=== PATIENT | female | born 1995 | race Caucasian/White ===

== ENCOUNTER 2020-02-25 13:39 | Emergency (ER) | payer SELFPAY ==
[2020-02-25 14:01] VITALS: PULSE 112; RESP 14; TEMP 36.1; O2SAT 96; BMI 45.6
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
[2020-02-25 15:34] LABS: Basophils # 0.1 10^3/uL (0.0-0.1); Basophils % 0.4 %; Eosinophils % 0.3 %; Hematocrit 42.8 % (37.0-47.0); Hemoglobin 13.3 g/dL (11.5-15.3); Mean Corpuscular HGB Conc 31.1 g/dL (30.0-36.0); Mean Corpuscular Hemoglobin 26.4 pg (28.0-34.0); Mean Corpuscular Volume 85.1 fL (81-99); Mean Platelet Volume 10.5 fL (7.4-10.4); Monocytes # 0.7 10^3/uL (0.2-0.9); Monocytes % 5.5 %; Neutrophils # 10.3 10^3/uL (1.8-7.7); Neutrophils % 77.3 %; Nucleated Red Blood Cells % 0 %; Platelet Count 323 10^3/cmm (130-400); Red Blood Count 5.03 10^6/uL (4.1-5.3); Red Cell Distribution Width 15.7 % (12.1-15.1); White Blood Count 13.3 10^3/uL (4.0-10.0)
[2020-02-25 15:49] LABS: HCG, Serum Qual Negative (Negative)
[2020-02-25] MEDS: ondansetron 2 mg/ML SDV 2 mL 4 MG IVP (15:49)
[2020-02-25 15:50] VITALS: RESP 18; O2SAT 98
[2020-02-25 15:50] LABS: Alanine Aminotransferase 42 U/L (0-33); Albumin Level 4.2 g/dL (3.5-5.2); Alkaline Phosphatase 67 IU/L (35-105); Anion Gap 17.2 (5-19); Aspartate Amino Transferase 36 U/L (0-32); Blood Urea Nitrogen 11 mg/dL (6-20); Calcium 9.3 mg/dL (8.5-10.5); Carbon Dioxide 26 mmol/L (22-29); Chloride 102 mmol/L (98-107); Glomerular Filtration Rate 121.8 mL/min (90-130); Glucose 96 mg/dL (65-115); Lactate (Lactic Acid level) 1.9 mmol/L (0.5-2.2); Osmolality Calculated 288 mOsm/kg (285-295); Potassium 4.2 mmol/L (3.5-5.1); Sodium 141 mmol/L (136-145); Total Bilirubin 0.3 mg/dL (0.15-1.2); Total Protein 7.2 g/dL (6.6-8.7)
[2020-02-25] MEDS: morphine 4 mg/mL SDV 1 mL IVP (15:50)
[2020-02-25] MEDS: sodium chloride 0.9% 1,000 ML 999 ML IV (16:00)
[2020-02-25] MEDS: iohexol 300 mg/mL 100 mL Btl IV (16:05)
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
[2020-02-25] MEDS: acetaminophen 500 mg Tablet 1000 MG PO (18:17)
[2020-02-25] MEDS: ketorolac 30 mg/mL INJ 15 MG IVP (18:17)
[2020-02-25 18:39] VITALS: RESP 18; O2SAT 98
[2020-02-25 18:46] VITALS: BP 160/88; PULSE 21; RESP 96; O2SAT 95
[2020-02-25 19:11] LABS: Add Urine Microscopic? YES; Bilirubin Urine Neg (NEGATIVE); Blood Urine Neg (Negative); Glucose Urine UA Norm (Normal); Ketones Urine Negative (Negative); Leukocyte Esterase Urine Negative (Negative); Nitrate Urine Negative (Negative); Protein Urine Trace (Negative); Urine Appearance Hazy (CLEAR); Urine Color Yellow (Yellow); Urobilinogen Urine Norm (Negative); pH Urine 5 (5-7)
[2020-02-25 19:13] LABS: Add Urine Culture? No; Bacteria Urine TRACE; Calcium Oxalate Crystals Urine 40-55 /hpf; Mucus Urine TRACE; RBC Urine 0-4 /hpf (0-2)
== END 2020-02-25 18:48 | disposition home or self-care (01) ==
PROVIDERS: Emergency Provider Emergency Medicine; PCP Family Medicine
DX: S29.012A Strain of muscle and tendon of back wall of thorax, initial encounter (principal); S13.4XXA Sprain of ligaments of cervical spine, initial encounter; S80.12XA Contusion of left lower leg, initial encounter; V49.9XXA Car occupant (driver) (passenger) injured in unspecified traffic accident, initial encounter
CPT/HCPCS: 12345; 36415; 70450; 71260; 72125; 73552; 74177; 80053; 81001; 83605; 84703; 85025; 86850; 86900; 96361; 96374; 96375; 99282; 99283; J1885; J2270; J2405; J7030; Q9967

== ENCOUNTER → 2020-05-06 14:31 | Outpatient (BNVA) | payer BC, SELFPAY | PROVIDERS: PCP Family Medicine; Visit Provider Nurse Practitioner Family | DX: J02.9 Acute pharyngitis, unspecified (principal); J03.90 Acute tonsillitis, unspecified | CPT/HCPCS: 87071; 87880 ==

== ENCOUNTER 2020-09-03 13:52 | Emergency (ER) | payer BC, SELFPAY ==
[2020-09-03 13:57] VITALS: BP 162/107; PULSE 95; RESP 16; TEMP 36; O2SAT 98; BMI 44.1
--- NOTE | 2020-09-03 13:59 | XRR_ITS ---
PROCEDURE INFORMATION: Exam: XR Right Hand Exam date and time: 09/03/2020 2:02 PM Age: 25 years old Clinical indication: Injury or trauma; Fall; Blunt trauma (contusions or hematomas); Hand; Bilateral; Injury date: Today; Additional info: Fall hand pain TECHNIQUE: Imaging protocol: XR Right hand. Views: 3 or more views. COMPARISON: No relevant prior studies available. FINDINGS: Bones/joints: There is a comminuted transverse hairline fracture of the distal metaphysis of the radius. An avulsion fracture is seen in the tip of the ulnar styloid. Soft tissues: Soft tissue edema is seen in the ventral wrist XR/XR hand RT min 3V* [id number] IMPRESSION: 1. Comminuted transverse hairline fracture distal metaphysis of the radius. 2. Avulsion fracture tip of the ulnar styloid 3. Soft tissue edema ventral wrist 4. Otherwise negative examination
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
[2020-09-03] MEDS: HYDROcodone-acetaminophen 5-325 mg Tablet 1 TAB PO (14:15)
[2020-09-03 14:16] VITALS: BP 162/107; PULSE 95; RESP 16; O2SAT 97
[2020-09-03 15:06] VITALS: PULSE 92; RESP 16; O2SAT 97
--- NOTE | 2020-09-07 11:15 | DCPLANNER ---
manager ship had message to schedule a follow up appointment for patient with ortho. manager ship called the ortho clinic, spoke with Natasha, gave clinic patients information. manager ship was told that patients information would be printed and reviewed. Clinic will call patient with appointment information.
--- NOTE | 2020-09-09 10:04 | DCPLANNER ---
Patient has a follow up appointment scheduled for , September 10, 2020 at 3:[address] Barajas. Clinic will call patient with appointment information.
--- NOTE | 2020-10-09 12:50 | DCPLANNER ---
Patient had a follow up appointment scheduled for 09.10.20 with ortho - patient did attend appointment.
== END 2020-09-03 15:08 | disposition home or self-care (01) ==
PROVIDERS: Emergency Provider Nurse Practitioner Family; PCP Family Medicine
DX: S52.124A Nondisplaced fracture of head of right radius, initial encounter for closed fracture (principal); S52.611A Displaced fracture of right ulna styloid process, initial encounter for closed fracture; W18.09XA Striking against other object with subsequent fall, initial encounter
CPT/HCPCS: 12345; 29125; 73090; 73130; 99281; 99283

== ENCOUNTER → 2020-09-10 15:42 | Outpatient (BNVA) | payer BC, SELFPAY | PROVIDERS: PCP Family Medicine; Visit Provider Orthopaedic Surgery | DX: S52.501A Unspecified fracture of the lower end of right radius, initial encounter for closed fracture (principal); S52.614A Nondisplaced fracture of right ulna styloid process, initial encounter for closed fracture; X58.XXXA Exposure to other specified factors, initial encounter | CPT/HCPCS: 73110 ==

== ENCOUNTER 2020-09-10 16:12 | Outpatient (CLI) | payer BC, SELFPAY | END 2020-09-10 16:13 | disposition home or self-care (01) | LOC: SPT 16:14 | PROVIDERS: PCP Family Medicine; Visit Provider Orthopaedic Surgery | DX: Z46.89 Encounter for fitting and adjustment of other specified devices (principal); S52.591D Other fractures of lower end of right radius, subsequent encounter for closed fracture with routine healing; X58.XXXD Exposure to other specified factors, subsequent encounter | CPT/HCPCS: 97760; L3982 ==

== ENCOUNTER → 2020-10-01 08:04 | Outpatient (BNVA) | payer BC, SELFPAY | PROVIDERS: PCP Family Medicine; Visit Provider Orthopaedic Surgery | DX: S59.201D Unspecified physeal fracture of lower end of radius, right arm, subsequent encounter for fracture with routine healing (principal); S52.611D Displaced fracture of right ulna styloid process, subsequent encounter for closed fracture with routine healing; X58.XXXD Exposure to other specified factors, subsequent encounter | CPT/HCPCS: 73110 ==

== ENCOUNTER → 2020-10-29 08:40 | Outpatient (BNVA) | payer BC, OTHER, SELFPAY | PROVIDERS: PCP Family Medicine; Visit Provider Orthopaedic Surgery | DX: S52.124D Nondisplaced fracture of head of right radius, subsequent encounter for closed fracture with routine healing (principal); X58.XXXD Exposure to other specified factors, subsequent encounter | CPT/HCPCS: 73110 ==

== ENCOUNTER 2020-11-05 07:34 | Outpatient (RCR) | payer OTHER, SELFPAY | END 2020-11-08 23:59 | disposition home or self-care (01) | LOC: SOT 07:34 | PROVIDERS: PCP Family Medicine; Referring Provider Orthopaedic Surgery; Visit Provider Orthopaedic Surgery | DX: S52.501D Unspecified fracture of the lower end of right radius, subsequent encounter for closed fracture with routine healing (principal) | CPT/HCPCS: 97110; 97165 ==

== ENCOUNTER 2020-11-09 06:00 | Outpatient (RCR) | payer OTHER, SELFPAY | END 2020-12-06 23:59 | disposition home or self-care (01) | LOC: SOT 06:00 | PROVIDERS: PCP Family Medicine; Referring Provider Orthopaedic Surgery; Visit Provider Orthopaedic Surgery | DX: S52.501D Unspecified fracture of the lower end of right radius, subsequent encounter for closed fracture with routine healing (principal) | CPT/HCPCS: 97022; 97110; 97530 ==

== ENCOUNTER 2020-12-17 13:22 | Inpatient (IN) | payer OTHER, SELFPAY ==
[2020-12-17] VITALS (15 sets, daily range): BP systolic 102–131; BP diastolic 51–84; PULSE 88–116; RESP 12–22; TEMP 36.2–36.7; O2SAT 92–100; BMI 42.3
--- NOTE | 2020-12-17 13:44 | ED_ITS ---
Documented by User: VICTORINO Brown 12/17/20 15:49 HPI - Skin/Abscess/Foreign Bdy General: Chief complaint: Skin/Abscess/Foreign Body Stated complaint: ABSCESS ON BUTTOCKS Time Seen by Provider: 12/17/20 13:33 Source: patient Mode of arrival: ambulatory Limitations: no limitations History of Present Illness: HPI narrative: Patient is a very nice 25-year-old female who presents to ED today with a complaint of a possible abscess near her rectum. Patient tells me she began noticing some discomfort approximately 3 to 4 days ago. She states since that time she has noticed the area becoming more painful and enlarging in size. She is having discomfort with sitting, walking, and with bowel movements. She has not noticed any drainage. She tells me she feels febrile but has not taken her temperature. She states she generally feels ill. Patient is not a diabetic. She has no history of staph or MRSA. complaint: abscess/boil Onset (ago): day(s) Location: buttocks Severity: moderate Quality: constant Pain Consistency: constant Relieving factors: none Context: none Associated symptoms: Reports arthralgias and chills; Deny nausea or vomiting Treatments prior to arrival: none Review of Systems Const: Reports: fever(s) (subjective), chills and body aches; Denies: change in appetite, change in weight, fatigue or malaise Card: Denies: chest pain Resp: Denies: dyspnea GI: Reports: rectal swelling, rectal itching and other (painful bowel movements); Denies: abdominal pain, nausea, vomiting, diarrhea, change in stool character, hematochezia, melena or white/light colored stool : Denies: flank pain, difficulty voiding, dysuria, urinary frequency or urinary urgency Musc: Denies: neck pain, back pain, extremity pain, extremity swelling, joint pain or joint swelling Skin/Breast: Reports: other (abscess) Neuro: Denies: headache(s), numbness in extremities, weakness in extremities or sensory changes PFSH ED PFSH: Social History Smoking and tobacco status: never smoked Female Reproductive History: Date of last menstrual period: 12/14/20 Physical Exam Const: COMMON NORMALS: no acute distress, no limitations and alert GENERAL APPEARANCE: cooperative NUTRITIONAL APPEARANCE: obese ORIENTATION/CONSCIOUSNESS: Yes awake, Yes oriented to person, Yes oriented to place and Yes oriented to time Resp: COMMON NORMALS: normal respiratory effort and clear to auscultation bilaterally AUSCULTATION: clear to auscultation bilaterally Cardio: COMMON NORMALS: regular rhythm RATE: tachycardic RHYTHM: regular rhythm GI: COMMON NORMALS: Normal to inspection, nondistended, normoactive bowel sounds present, Soft to palpation, non-tender, No hepatosplenomegaly present and no masses AUSCULTATION: Yes normoactive bowel sounds PALPATION: Yes Soft to palpation and Yes No hepatosplenomegaly present OTHER: pt with large area (approx 9cm) of erythema, warmth, and induration to R anorectal region; does not seem to extend into perineum; no areas of fluctuance noted Neuro: SENSORIUM/ORIENTATION: Yes alert, Yes oriented to person, Yes oriented to place and Yes oriented to time Course Consultations: Consultation #1: Dr. Mao-recommends admit to obs under his service, plan for OR around 1700, orders for fluids, pain/nausea meds, and can continue the cipro/flagyl abx Vital Signs: Vital signs: Vital Signs Temperature 97.1 F L 12/17/20 23:29 Pulse Rate 89 12/17/20 23:29 Respiratory Rate 16 12/17/20 23:29 Blood Pressure 102/62 12/17/20 23:29 Pulse Oximetry 94 12/17/20 23:29 MDM - Skin/Abscess/Foreign Bdy MDM Narrative: Medical decision making narrative: Patient has a white count of 17.7. She is mildly tachycardic. Her lactate is normal. She has a very large perirectal/perineal abscess on CT imaging. I spoke to Dr. Mao who would like to take patient to the OR around 1700 this evening. Lab Data: Labs: Lab Results 12/17/20 12/17/20 12/17/20 Range/Units 14:10 14:10 14:10 WBC 17.7 H (4.0-10.0) 10^3/ uL RBC 4.10 (4.1-5.3) 10^6/u L Hgb 11.2 L (11.5-15.3) g/dL Hct 35.1 L (37.0-47.0) % MCV 85.6 (81-99) fL MCH 27.3 L (28.0-34.0) pg MCHC 31.9 (30.0-36.0) g/dL RDW 14.6 (12.1-15.1) % Plt Count 340 (130-400) 10^3/c mm MPV 10.2 (7.4-10.4) fL Neut % (Auto) 83.4 % Lymph % (Auto) 9.0 % [place] % (Auto) 6.1 % Eos % (Auto) 0.3 % Baso % (Auto) 0.4 % Neut # (Auto) 14.71 H (1.8-7.7) 10^3/u L Lymph # (Auto) 1.6 (0.8-4.8) 10^3/u L [place] # (Auto) 1.1 H (0.2-0.9) 10^3/u L Eos # (Auto) 0.1 (0.0-0.8) 10^3/u L Baso # (Auto) 0.1 (0.0-0.1) 10^3/u L Nucleated RBC % (a uto) 0 % Nucleated RBCs # 0.0 /100WBC Sodium 134 L (136-145) mmol/L Potassium 3.8 (3.5-5.1) mmol/L Chloride 98 (98-107) mmol/L Carbon Dioxide 25 (22-29) mmol/L Anion Gap 14.8 (5-19) BUN 8 (6-20) mg/dL Creatinine 0.8 (0.5-0.9) mg/dL GFR Calculation 86.7 L (90-130) mL/min Glucose 89 (65-115) mg/dL Calculated Osmolal ity 276 L (285-295) mOsm/k g Lactic Acid 1.1 (0.5-2.2) mmol/L Calcium 9.1 (8.5-10.5) mg/dL Total Bilirubin 0.9 (0.15-1.2) mg/dL AST 15 (0-32) U/L ALT 17 (0-33) U/L Alkaline Phosphata se 85 (35-105) IU/L C-Reactive Protein 137.6 H (0.0-4.9) mg/L Total Protein 7.7 (6.6-8.7) g/dL Albumin 3.7 (3.5-5.2) g/dL Globulin 4.0 (1.3-4.6) g/dL HCG, Qual (Negative) 12/17/20 Range/Units 14:10 WBC (4.0-10.0) 10^3/ uL RBC (4.1-5.3) 10^6/u L Hgb (11.5-15.3) g/dL Hct (37.0-47.0) % MCV (81-99) fL MCH (28.0-34.0) pg MCHC (30.0-36.0) g/dL RDW (12.1-15.1) % Plt Count (130-400) 10^3/c mm MPV (7.4-10.4) fL Neut % (Auto) % Lymph % (Auto) % [place] % (Auto) % Eos % (Auto) % Baso % (Auto) % Neut # (Auto) (1.8-7.7) 10^3/u L Lymph # (Auto) (0.8-4.8) 10^3/u L [place] # (Auto) (0.2-0.9) 10^3/u L Eos # (Auto) (0.0-0.8) 10^3/u L Baso # (Auto) (0.0-0.1) 10^3/u L Nucleated RBC % (a uto) % Nucleated RBCs # /100WBC Sodium (136-145) mmol/L Potassium (3.5-5.1) mmol/L Chloride (98-107) mmol/L Carbon Dioxide (22-29) mmol/L Anion Gap (5-19) BUN (6-20) mg/dL Creatinine (0.5-0.9) mg/dL GFR Calculation (90-130) mL/min Glucose (65-115) mg/dL Calculated Osmolal ity (285-295) mOsm/k g Lactic Acid (0.5-2.2) mmol/L Calcium (8.5-10.5) mg/dL Total Bilirubin (0.15-1.2) mg/dL AST (0-32) U/L ALT (0-33) U/L Alkaline Phosphata se (35-105) IU/L C-Reactive Protein (0.0-4.9) mg/L Total Protein (6.6-8.7) g/dL Albumin (3.5-5.2) g/dL Globulin (1.3-4.6) g/dL HCG, Qual Negative (Negative) Imaging Data^: CT Abd/Pel: Radiologist's impression: [address] [address] [address] Scan Report Signed Patient: [place] Unit #: [id number] : 1995 Age/Sex: 25 / F ADM Date: 12/17/20 Loc: ER Room/Bed: Attending Dr: Ordering Provider/Ordering MD: Tatiana Lord Date of Service: 12/17/20 Procedure(s): CT pelvis w con* [id number] Accession Number(s): [id number] Report Number: [id number] WS: [id number] CT pelvis TECHNIQUE: Contrast-enhanced CT of the pelvis with coronal and sagittal reformatted images. CLINICAL INFORMATION: R buttock/perirectal abscess COMPARISON: CT February 25, 2020 DLP: 1551.[address] scans at [facility] use at least one of these dose optimization techniques: automated exposure control; mA and/or kV adjustment per patient size (includes targeted exams where dose is matched to clinical indication); or iterative reconstruction. FINDINGS: Right perirectal and perineal abscess with air-fluid level measuring approximately 4.8 x 5.1 x 7.2 cm AP by transverse by craniocaudal. Soft tissue edema with induration in the perirectal soft tissues. Normal sigmoid colon. A few reactive right inguinal lymph nodes. No other significant findings. CT/CT pelvis w con* [id number] IMPRESSION: 1. Right perirectal and perineal abscess measuring 4.8 x 5.1 x 7.2 cm with air- fluid level. 2. Associated surrounding induration and inflammatory stranding in the perirectal and perineal soft tissues. 3. A few reactive right inguinal lymph nodes. Dictated By: Calvin Bradshaw MD Signed By: Calvin Bradshaw MD Signed Date/Time: 12/17/20 1522 DD/ Discharge Plan Discharge Patient Disposition: Placed in Observation Admit Provider: Jens Mao Clinical Impression: Abscess, perirectal Coding Level of Care Code ED Cadd Drafter for Chg Fwd Exam Expanded Problem Focused Documented by User: Yessica Mcdonough MD 12/18/20 01:52 HPI - Skin/Abscess/Foreign Bdy General: Chief complaint: Skin/Abscess/Foreign Body Stated complaint: ABSCESS ON BUTTOCKS Time Seen by Provider: 12/17/20 13:33 PFSH ED PFSH: Social History Smoking and tobacco status: never smoked Course Vital Signs: Vital signs: Vital Signs Temperature 97.1 F L 12/17/20 23:29 Pulse Rate 89 12/17/20 23:29 Respiratory Rate 16 12/17/20 23:29 Blood Pressure 102/62 12/17/20 23:29 Pulse Oximetry 94 12/17/20 23:29 MDM - Skin/Abscess/Foreign Bdy Lab Data: Labs: Lab Results 12/17/20 12/17/20 12/17/20 Range/Units 14:10 14:10 14:10 WBC 17.7 H (4.0-10.0) 10^3/ uL RBC 4.10 (4.1-5.3) 10^6/u L Hgb 11.2 L (11.5-15.3) g/dL Hct 35.1 L (37.0-47.0) % MCV 85.6 (81-99) fL MCH 27.3 L (28.0-34.0) pg MCHC 31.9 (30.0-36.0) g/dL RDW 14.6 (12.1-15.1) % Plt Count 340 (130-400) 10^3/c mm MPV 10.2 (7.4-10.4) fL Neut % (Auto) 83.4 % Lymph % (Auto) 9.0 % [place] % (Auto) 6.1 % Eos % (Auto) 0.3 % Baso % (Auto) 0.4 % Neut # (Auto) 14.71 H (1.8-7.7) 10^3/u L Lymph # (Auto) 1.6 (0.8-4.8) 10^3/u L [place] # (Auto) 1.1 H (0.2-0.9) 10^3/u L Eos # (Auto) 0.1 (0.0-0.8) 10^3/u L Baso # (Auto) 0.1 (0.0-0.1) 10^3/u L Nucleated RBC % (a uto) 0 % Nucleated RBCs # 0.0 /100WBC Sodium 134 L (136-145) mmol/L Potassium 3.8 (3.5-5.1) mmol/L Chloride 98 (98-107) mmol/L Carbon Dioxide 25 (22-29) mmol/L Anion Gap 14.8 (5-19) BUN 8 (6-20) mg/dL Creatinine 0.8 (0.5-0.9) mg/dL GFR Calculation 86.7 L (90-130) mL/min Glucose 89 (65-115) mg/dL Calculated Osmolal ity 276 L (285-295) mOsm/k g Lactic Acid 1.1 (0.5-2.2) mmol/L Calcium 9.1 (8.5-10.5) mg/dL Total Bilirubin 0.9 (0.15-1.2) mg/dL AST 15 (0-32) U/L ALT 17 (0-33) U/L Alkaline Phosphata se 85 (35-105) IU/L C-Reactive Protein 137.6 H (0.0-4.9) mg/L Total Protein 7.7 (6.6-8.7) g/dL Albumin 3.7 (3.5-5.2) g/dL Globulin 4.0 (1.3-4.6) g/dL HCG, Qual (Negative) 12/17/20 Range/Units 14:10 WBC (4.0-10.0) 10^3/ uL RBC (4.1-5.3) 10^6/u L Hgb (11.5-15.3) g/dL Hct (37.0-47.0) % MCV (81-99) fL MCH (28.0-34.0) pg MCHC (30.0-36.0) g/dL RDW (12.1-15.1) % Plt Count (130-400) 10^3/c mm MPV (7.4-10.4) fL Neut % (Auto) % Lymph % (Auto) % [place] % (Auto) % Eos % (Auto) % Baso % (Auto) % Neut # (Auto) (1.8-7.7) 10^3/u L Lymph # (Auto) (0.8-4.8) 10^3/u L [place] # (Auto) (0.2-0.9) 10^3/u L Eos # (Auto) (0.0-0.8) 10^3/u L Baso # (Auto) (0.0-0.1) 10^3/u L Nucleated RBC % (a uto) % Nucleated RBCs # /100WBC Sodium (136-145) mmol/L Potassium (3.5-5.1) mmol/L Chloride (98-107) mmol/L Carbon Dioxide (22-29) mmol/L Anion Gap (5-19) BUN (6-20) mg/dL Creatinine (0.5-0.9) mg/dL GFR Calculation (90-130) mL/min Glucose (65-115) mg/dL Calculated Osmolal ity (285-295) mOsm/k g Lactic Acid (0.5-2.2) mmol/L Calcium (8.5-10.5) mg/dL Total Bilirubin (0.15-1.2) mg/dL AST (0-32) U/L ALT (0-33) U/L Alkaline Phosphata se (35-105) IU/L C-Reactive Protein (0.0-4.9) mg/L Total Protein (6.6-8.7) g/dL Albumin (3.5-5.2) g/dL Globulin (1.3-4.6) g/dL HCG, Qual Negative (Negative) Discharge Plan Discharge Patient Disposition: Placed in Observation Admit Provider: Giurgius,Jens Clinical Impression: Abscess, perirectal Coding Level of Care Code ED Cadd Drafter for Chg Fwd Exam Expanded Problem Focused
--- NOTE | 2020-12-17 13:53 | CT_ITS ---
WS: [id number] CT pelvis TECHNIQUE: Contrast-enhanced CT of the pelvis with coronal and sagittal reformatted images. CLINICAL INFORMATION: R buttock/perirectal abscess COMPARISON: CT February 25, 2020 DLP: 1551.[address] scans at [facility] use at least one of these dose optimization techniques: automat ed exposure control; mA and/or kV adjustment per patient size (includes targeted exams where dose is matched to clinical indication); or iterative reconstruction. FINDINGS: Right perirectal and perineal abscess with air-fluid level measuring approximately 4.8 x 5.1 x 7.2 cm AP by transverse by craniocaudal. Soft tissue edema with induration in the perirectal soft tissues. Normal sigmoid colon. A few reactive right inguinal lymph nodes. No other significant findings. CT/CT pelvis w con* [id number] IMPRESSION: 1. Right perirectal and perineal abscess measuring 4.8 x 5.1 x 7.2 cm with air -fluid level. 2. Associated surrounding induration and inflammatory stranding in the perirec verenice and perineal soft tissues. 3. A few reactive right inguinal lymph nodes.
[2020-12-17] MEDS: ciprofloxacin 400 MG/200 ML PREMIX 200 MG IV (14:17)
[2020-12-17 14:21] LABS: Basophils # 0.1 10^3/uL (0.0-0.1); Basophils % 0.4 %; Eosinophils # 0.1 10^3/uL (0.0-0.8); Eosinophils % 0.3 %; Hematocrit 35.1 % (37.0-47.0); Hemoglobin 11.2 g/dL (11.5-15.3); Lymphocytes # 1.6 10^3/uL (0.8-4.8); Mean Corpuscular HGB Conc 31.9 g/dL (30.0-36.0); Mean Corpuscular Hemoglobin 27.3 pg (28.0-34.0); Mean Corpuscular Volume 85.6 fL (81-99); Mean Platelet Volume 10.2 fL (7.4-10.4); Monocytes # 1.1 10^3/uL (0.2-0.9); Monocytes % 6.1 %; Neutrophils # 14.71 10^3/uL (1.8-7.7); Neutrophils % 83.4 %; Nucleated Red Blood Cells % 0 %; Platelet Count 340 10^3/cmm (130-400); Red Cell Distribution Width 14.6 % (12.1-15.1); White Blood Count 17.7 10^3/uL (4.0-10.0)
[2020-12-17 14:43] LABS: Alanine Aminotransferase 17 U/L (0-33); Albumin Level 3.7 g/dL (3.5-5.2); Alkaline Phosphatase 85 IU/L (35-105); Anion Gap 14.8 (5-19); Aspartate Amino Transferase 15 U/L (0-32); Blood Urea Nitrogen 8 mg/dL (6-20); C Reactive Protein 137.6 mg/L (0.0-4.9); Calcium 9.1 mg/dL (8.5-10.5); Carbon Dioxide 25 mmol/L (22-29); Chloride 98 mmol/L (98-107); Creatinine Clr Calc Pharmacy 149.3532; Glomerular Filtration Rate 86.7 mL/min (90-130); Glucose 89 mg/dL (65-115); Osmolality Calculated 276 mOsm/kg (285-295); Potassium 3.8 mmol/L (3.5-5.1); Sodium 134 mmol/L (136-145); Total Bilirubin 0.9 mg/dL (0.15-1.2); Total Protein 7.7 g/dL (6.6-8.7)
[2020-12-17 14:44] LABS: Lactic Sepsis W/Reflex 1.1 mmol/L (0.5-2.2)
[2020-12-17] MEDS: sodium chloride 0.9% 1,000 ML 999 ML IV (14:47)
[2020-12-17 14:51] LABS: HCG, Serum Qual Negative (Negative)
[2020-12-17] MEDS: iohexol 300 mg/mL 100 mL Btl IV (15:01)
[2020-12-17] MEDS: morphine 4 mg/mL SDV 1 mL IVP (15:25)
[2020-12-17] MEDS: ondansetron 2 mg/ML SDV 2 mL 4 MG IVP (15:28)
[2020-12-17] MEDS: metroNIDAZOLE IV 500 MG/100 ML PREMIX 100 MG IV ×2 (15:42→20:20)
--- NOTE | 2020-12-17 15:49 | P.HP_ITS ---
Providers/Chief Complaint Primary Care Provider: Dayanara Grossman MD Chief Complaint: ABSCESS ON BUTTOCKS History of Present Illness Mrs. Little Grier is a pleasant 25 year old female with history of morbid obesity with a BMI 42.3 and weighs 278 pounds otherwise healthy young lady.. Patient over the past couple of days started to feel lethargic and tired no nausea or vomiting but she did recall some fever and mild chills. Patient was feeling uncomfortable standing or sitting down and she felt some fullness around the perianal area and came to the emergency department for further work-up and blood work showed WBC count of 17.[address] scan of the pelvis was ordered that showed: Right perirectal and perineal abscess with air-fluid level measuring approximately 4.8 x 5.1 x 7.2 cm AP by transverse by craniocaudal. Soft tissue edema with induration in the perirectal soft tissues. Normal sigmoid colon. A few reactive right inguinal lymph nodes. No other significant findings. CT/CT pelvis w con* [id number] IMPRESSION: 1. Right perirectal and perineal abscess measuring 4.8 x 5.1 x 7.2 cm with air- fluid level. 2. Associated surrounding induration and inflammatory stranding in the perirectal and perineal soft tissues. 3. A few reactive right inguinal lymph nodes. General surgery was consulted for further evaluation potential intervention Review of Systems General: Reports: 10 or more systems reviewed and unremarkable except in HPI and below Medications/Allergies Home Medications Medication Instructions Recorded Confirmed Last Taken Type aripiprazole 5 mg PO BEDTIME 02/25/20 12/17/20 02/24/20 History buspirone 10 mg PO TID PRN 02/25/20 12/17/20 02/24/20 History duloxetine 60 mg PO DAILY 02/25/20 12/17/20 02/24/20 History levothyroxine 125 mcg PO DAILY 02/25/20 12/17/20 02/24/20 History acetaminophen 500 mg PO Q6H PRN 12/17/20 12/17/20 12/17/20 History Allergies Allergy/AdvReac Type Severity Reaction Status Date / Time No Known Allergies Allergy Verified 12/17/20 16:38 PFSH Acute PFSH: Social History Smoking and tobacco status: never smoked Female Reproductive History: Date of last menstrual period: 12/14/20 Vitals/I&O/Wt Last Vital Signs Temp 97.9 F 12/17/20 13:30 Pulse 106 H 12/17/20 14:27 Resp 20 H 12/17/20 15:25 BP 111/70 12/17/20 14:27 Pulse Ox 100 12/17/20 14:27 Weight last 48 hrs Weight 278 lb Physical Exam Narrative: EXAM NARRATIVE: Patient is conscious alert oriented X3 BMI 42.3 Head and neck examination PERRLA no masses no cervical lymphadenopathy no jaundice Cardiac examination audible S1-S2 no murmurs no gallops no arrhythmias Chest is clear bilateral,abscence of Rhonchi or wheezes,no surgical emphysema Abdomen nontender nondistended soft no organomegaly guarding or rigidity/no signs of peritonitis Morbidly obese Physical examination was done in the presence of female retort condenser attendant nursing staff Bárbara Right perianal induration measures about 20 x 15 cm with maximal tenderness in the center consistent with right perianal abscess. Extremities no cyanosis no clubbing no edema Data : 12/17/20 14:10 12/17/20 14:10 Micro: Microbiology 12/17/20 14:28 Blood Culture - Preliminary Blood SPECIMEN COLLECTED 12/17/20 14:39 Blood Culture - Preliminary Blood SPECIMEN COLLECTED A&P Assessment and plan (1) Abscess, perirectal: After thorough history taking physical examination and reviewing the chart and images of the CT scan of the pelvis with my personal interpretation. I did international student counselor the patient and her mom for examination under anesthesia with incision and drainage of right perianal abscess. Indications, risks, benefits alternatives all discussed with the patient, understanding the potential risk of partial or complete incontinence with this procedure, also patient understands the potential longevity of wound care. Patient agreed to proceed and informed consent per chart We will plan to observe the patient overnight for pain control and continue antimicrobial therapy postoperatively. Status: Acute Attestations Medical Necessity Statement*: Observation status for pain control and antimicrobial therapy as part of perioperative care Time Spent in Patient Care: (>than 50% of time spent in counselling and/or direct pt care on unit) . Coding Level of Care Code Acute Utilization Engineer for Allison Meeks Diagnoses Abscess, perirectal K61.1
--- NOTE | 2020-12-17 16:40 | ANES.PREANE2 ---
Pre-Anesthetic Assessment Pre-Anesthetic Assessment: Height/Weight: Height 1.73 m Weight 126.099 kg Temp Pulse Resp BP Pulse Ox 97.9 F 94 18 112/84 98 12/17/20 16:39 12/17/20 16:39 12/17/20 16:39 12/17/20 16:39 12/17/20 16:39 Preop Diagnosis: Right perianal abscess Proposed Procedure: Operation Date: 12/17/20 15:55 Proposed Procedures p Perianal Abscess Incision And Drainage(Not Applicable) - Jens Mao MD Was Beta Bibiana taken within 24 hours: N/A Social: Social History: No alcohol and No tobacco Exam: Pre-Anes Outpt Exam: alert, oriented x 3, clear to auscultation bilaterally and regular rate & rhythm Airway: Submandibular: WNL Cervical ROM: WNL MP: 2 Dentition: Chipped History/ROS: No significant complaints Pulmonary: Pulmonary: None reported CV/HEM: CV/HEM: None reported : : None reported Hepatic: Hepatic: None reported GI: GI: GERD Metabolic: Metabolic: Morbid obesity and Thyroid Musc/skel: Musc/skel: None reported Neuropsych: Neuropsych: Depression Anesthetic Plan: ASA status: 2E Anesthesia: General PFSH Anesthesia PFSH: Social History Smoking and tobacco status: never smoked Female Reproductive History: Date of last menstrual period: 12/14/20 Data Anesthesia CBC & Chem 7: 12/17/20 14:10 12/17/20 14:10 Other Labs: Laboratory Results - last 48 hr 12/17/20 12/17/20 12/17/20 14:10 14:10 14:10 WBC 17.7 H RBC 4.10 Hgb 11.2 L Hct 35.1 L MCV 85.6 MCH 27.3 L MCHC 31.9 RDW 14.6 Plt Count 340 MPV 10.2 Neut % (Auto) 83.4 Lymph % (Auto) 9.0 Greenlee % (Auto) 6.1 Eos % (Auto) 0.3 Baso % (Auto) 0.4 Neut # (Auto) 14.71 H Lymph # (Auto) 1.6 Greenlee # (Auto) 1.1 H Eos # (Auto) 0.1 Baso # (Auto) 0.1 Nucleated RBC % (auto) 0 Nucleated RBCs # 0.0 Sodium 134 L Potassium 3.8 Chloride 98 Carbon Dioxide 25 Anion Gap 14.8 BUN 8 Creatinine 0.8 GFR Calculation 86.7 L Glucose 89 Calculated Osmolality 276 L Lactic Acid 1.1 Calcium 9.1 Total Bilirubin 0.9 AST 15 ALT 17 Alkaline Phosphatase 85 C-Reactive Protein 137.6 H Total Protein 7.7 Albumin 3.7 Globulin 4.0 HCG, Qual 12/17/20 14:10 WBC RBC Hgb Hct MCV MCH MCHC RDW Plt Count MPV Neut % (Auto) Lymph % (Auto) Greenlee % (Auto) Eos % (Auto) Baso % (Auto) Neut # (Auto) Lymph # (Auto) Greenlee # (Auto) Eos # (Auto) Baso # (Auto) Nucleated RBC % (auto) Nucleated RBCs # Sodium Potassium Chloride Carbon Dioxide Anion Gap BUN Creatinine GFR Calculation Glucose Calculated Osmolality Lactic Acid Calcium Total Bilirubin AST ALT Alkaline Phosphatase C-Reactive Protein Total Protein Albumin Globulin HCG, Qual Negative Micro: Microbiology 12/17/20 14:28 Blood Culture - Preliminary Blood SPECIMEN COLLECTED 12/17/20 14:39 Blood Culture - Preliminary Blood SPECIMEN COLLECTED Cardiac Studies: No Data to Display
[2020-12-17] MEDS: lidocaine 2% INJ 20 mL INJECTION (17:25)
--- NOTE | 2020-12-17 17:35 | P.OP_ITS ---
Operative Report Date of procedure: December 17, 2020 Pre-op Diagnosis: Right perianal abscess Post-op diagnosis: same Post-op Findings: Large right perianal abscess with measurements 5 x 3.5 by [address] to the ischiorectal fossa pad of fat Procedure Done: Examination under anesthesia Incision and drainage of right perianal abscess with sharp debridement of the abscess cavity. Implants: Packing with 2 inches mini Kerlix and large piece of Surgicel Specimens removed/disposition: Swabs for cultures and sensitivities and tissues for cultures and sensitivities Surgeon: Jens Mao Commercial Credit Reviewer: interventional tech Haley Circulating nurse Coy Kelly Anesthesia: General (GETA PRODUCTION TEAM MEMBER Deshaun) Estimated blood loss (mL): 15 Complications: No immediate complications Condition: stable Disposition: observation Brief History: This is a pleasant 25 years old female patient with history of right perianal abscess. Full H&P and informed consent per chart. Procedure: Examination under anesthesia with incision and drainage of right perianal abscess Patient was identified in the holding area, was taken to the OR placed first in supine position,IV antibiotics were given with induction time-out was done verifying the patient's name, date of , and procedure, all were in agreement.Endotracheal tube was placed by the anesthesia provider, patient was placed in supine position and all pressure points were padded and patient was appropriately secured to the bed. Prep and drape of the perineum was done under the usual sterile technique Perianal examination showed right perianal induration,on digital rectal examination showed a right lateral fullness with no involvement of the anal canal.No perianal sinuses or fistulae. A lubricated self-retaining proctoscope was inserted, showed normal findings of the anal canal. At this point a stab incision was created towards the center of the most fluctuant area and a gush of pus was revealed swabs were obtained for cultures and sensitivities following that a cruciate incision was fashioned and all loculations were broken down by the examining finger. Tissues were obtained for cultures and sensitivities and following that Pulsavac using 3 L of warm saline was done then appropriate hemostasis was achieved using Bovie cauterization.Then packing using 2 inches mini Kerlix impregnated and lidocaine 2% followed by large piece of Surgicel. ABDs were applied followed by surgical pants Patient was repositioned to supine position,counts of instruments,needles and sponges were completed at the end of the procedure Patient was taken to the recovery area in stable condition after extubation. I was present for the whole entire procedure
--- NOTE | 2020-12-17 17:55 | P.PCN_ITS ---
PACU note PACU note: VSS, Good respiratory effort, report to RPG PROGRAMMER ANALYST Post-Anesthesia Exam: awake
--- NOTE | 2020-12-17 17:55 | PM.PACU ---
PACU note PACU note: VSS, Good respiratory effort, report to CARDIAC REHAB NURSE Post-Anesthesia Exam: awake
[2020-12-17] MEDS: docusate sodium 100 mg Capsule PO (20:20)
[2020-12-17] MEDS: HYDROcodone-acetaminophen 5-325 mg Tablet 1 TAB PO (20:20)
[2020-12-17] MEDS: sodium chloride 0.9% 1,000 ML 100 ML IV (20:20)
[2020-12-17] MEDS: famotidine 20 mg/2 mL INJ IVP (20:22)
[2020-12-18] VITALS (9 sets, daily range): BP systolic 95–153; BP diastolic 54–88; PULSE 65–87; RESP 15–18; TEMP 36.2–37.1; O2SAT 94–97
[2020-12-18] MEDS: ciprofloxacin 400 MG/200 ML PREMIX 200 MG IV (02:24)
[2020-12-18] MEDS: HYDROcodone-acetaminophen 5-325 mg Tablet 1 TAB PO ×3 (02:24→17:27)
[2020-12-18] MEDS: metroNIDAZOLE IV 500 MG/100 ML PREMIX 100 MG IV ×3 (05:26→23:06)
[2020-12-18 06:05] LABS: Basophils # 0.1 10^3/uL (0.0-0.1); Basophils % 0.3 %; Hematocrit 35.7 % (37.0-47.0); Hemoglobin 10.7 g/dL (11.5-15.3); Lymphocytes # 1.1 10^3/uL (0.8-4.8); Lymphocytes % 6.4 %; Mean Corpuscular Hemoglobin 26.8 pg (28.0-34.0); Mean Corpuscular Volume 89.5 fL (81-99); Mean Platelet Volume 10.5 fL (7.4-10.4); Monocytes # 0.5 10^3/uL (0.2-0.9); Monocytes % 2.9 %; Neutrophils # 15.29 10^3/uL (1.8-7.7); Neutrophils % 89.5 %; Nucleated Red Blood Cells % 0 %; Platelet Count 295 10^3/cmm (130-400); Red Blood Count 3.99 10^6/uL (4.1-5.3); Red Cell Distribution Width 14.8 % (12.1-15.1); White Blood Count 17.1 10^3/uL (4.0-10.0)
[2020-12-18 06:14] LABS: Anion Gap 13.3 (5-19); Blood Urea Nitrogen 8 mg/dL (6-20); Calcium 8.5 mg/dL (8.5-10.5); Carbon Dioxide 26 mmol/L (22-29); Chloride 102 mmol/L (98-107); Glomerular Filtration Rate 120.8 mL/min (90-130); Glucose 126 mg/dL (65-115); Osmolality Calculated 284 mOsm/kg (285-295); Potassium 4.3 mmol/L (3.5-5.1); Sodium 137 mmol/L (136-145)
[2020-12-18] MEDS: sodium chloride 0.9% 1,000 ML 100 ML IV ×2 (06:29→16:41)
[2020-12-18] MEDS: docusate sodium 100 mg Capsule PO ×2 (10:09→17:28)
[2020-12-18] MEDS: famotidine 20 mg/2 mL INJ IVP ×2 (10:09→23:05)
[2020-12-18] MEDS: morphine 4 mg/mL SDV 1 mL 2 MG IVP ×3 (12:01→19:55)
--- NOTE | 2020-12-18 14:16 | PC.CHAP ---
Pastoral Care Encounter/Spiritual Assessment Type of Contact [] Declined advertising strategist visit [] Patient/Family/Request visit [] Outpatient visit [] Follow-up visit [] Physician referral [] Code/Alert [xx] Routine visit [] Staff referral [] Actively dying [] Patient sleeping [] Family support [] [] Out of room [] Palliative care [] [] Receiving care in room [] Pre-surgical visit [] Trauma [] Long length of stay [] ICU visit [] Other: Relational/Emotional Strength xx] Patient feels connected with others/family/visitors/staff [] Distress [] Loneliness/isolation [] Abandonment Spirituality of Patient [xx] Person of Caitlyn [] Attends Yazdanism of their Caitlyn [xx] Believes in Prayer [xx] Reads Bible or Congregation materials [] There are Spiritual issues to be addressed Mill Labor Supervisor Interventions [xx] Prayer [xx] Active listening [xx] Non-anxious presence [] Spiritual/emotional support [] Crisis/trauma care [] Spiritual counseling [] Bereavement support [] Provided bereavement packet [xx] Provided Bible/devotional materials [] Provided toy/stuffed animal, coloring book to patient or family member [] Provided Communion [] Anointing/[place] [] Salvation [xx] Completed spiritual assessment [] Other: Impact on Illness or Injury [] Angry [] Fearful [] Anxious [] Often cries [] Exhaustion [] Unable to work [] Unable to attend spiritism [] Unable to walk/stand [] Unable to read [] Unable to drive [] Unable to eat/drink [] Unable to sleep [] Unable to be with family [] Patient intubated [] Other: Summary Paatient feeling much better after surgery. Patient worried more about her home situation and wanted prayer but would not elaborate. Time spent with patient 5 minutes
--- NOTE | 2020-12-18 17:41 | P.PN_ITS ---
Subjective Subjective: Interval history: Patient overall feels better yet sore Medications: Reviewed: Yes Vitals/I&O/Wt Last Vital Signs Temp 98.7 F 12/18/20 15:22 Pulse 78 12/18/20 15:22 Resp 17 12/18/20 15:22 BP 100/54 12/18/20 15:22 Pulse Ox 94 12/18/20 15:22 12/18/20 12/18/20 12/18/20 06:59 14:59 22:59 Intake Total 1300 / 2800 820 / 820 1000 / 1820 Output Total 550 / 1365 500 / 500 Balance 750 / 1435 320 / 320 1000 / 1320 Weight last 48 hrs Weight 278 lb Physical Exam Narrative: EXAM NARRATIVE: Patient is conscious alert oriented X3 BMI 42.3 Head and neck examination PERRLA no masses no cervical lymphadenopathy no jaundice Abdomen nontender nondistended soft no organomegaly guarding or rigidity/no signs of peritonitis Morbidly obese Physical examination of the right perianal area in the presence of female optician apprentice nursing staff Lissette Patient shows induration and less cellulitic changes around the site of the incision and drainage. Packing was removed by me bedside after premedication and showed no purulent discharge or bleeding as well as the piece of Surgicel that I did place yesterday in the OR. Repacking was done by me bedside and patient tolerated it. Data : 12/18/20 04:37 12/18/20 04:37 Micro: Microbiology 12/17/20 14:39 Blood Culture - Preliminary Blood NEGATIVE TO DATE 12/17/20 14:28 Blood Culture - Preliminary Blood NEGATIVE TO DATE A&P Assessment and plan (1) Abscess, perirectal: Patient is status post examination under anesthesia with incision and drainage of right perianal abscess 12/17/2020 : daily wet-to-dry dressing change using Kerlix followed by ABDs and surgical alfaro ts. Pain control Parenteral broad-spectrum antibiotics Encourage mobility Continue pharmacologic DVT prophylaxis Assurance and education All questions have been answered and all concerns have been addressed to patient's satisfaction. Status: Acute Attestations Medical Necessity Statement*: Continue hospitalization for parenteral antimicrobial therapy and wound care. Repeat blood work in the morning. Time Spent in Patient Care: 16 - 35 minutes (>than 50% of time spent in counselling and/or direct pt care on unit) . Coding Level of Care Code Acute Digital Photo Printer for Chg Fwd Diagnoses Abscess, perirectal K61.1
[2020-12-19] VITALS (14 sets, daily range): BP systolic 102–119; BP diastolic 65–80; PULSE 69–93; RESP 16–20; TEMP 36.5–37; O2SAT 92–99
[2020-12-19] MEDS: morphine 4 mg/mL SDV 1 mL 2 MG IVP ×7 (00:50→22:42)
[2020-12-19] MEDS: sodium chloride 0.9% 1,000 ML 100 ML IV ×2 (04:03→14:31)
[2020-12-19] MEDS: metroNIDAZOLE IV 500 MG/100 ML PREMIX 100 MG IV ×3 (06:36→22:44)
[2020-12-19 06:55] LABS: Basophils % 0.3 %; Eosinophils % 0.1 %; Hematocrit 32.1 % (37.0-47.0); Hemoglobin 9.8 g/dL (11.5-15.3); Lymphocytes # 2.6 10^3/uL (0.8-4.8); Lymphocytes % 17.3 %; Mean Corpuscular HGB Conc 30.5 g/dL (30.0-36.0); Mean Corpuscular Hemoglobin 26.8 pg (28.0-34.0); Mean Corpuscular Volume 87.9 fL (81-99); Mean Platelet Volume 10.7 fL (7.4-10.4); Monocytes # 0.6 10^3/uL (0.2-0.9); Monocytes % 3.9 %; Neutrophils # 11.59 10^3/uL (1.8-7.7); Neutrophils % 76.4 %; Nucleated Red Blood Cells % 0 %; Platelet Count 300 10^3/cmm (130-400); Red Blood Count 3.65 10^6/uL (4.1-5.3); Red Cell Distribution Width 14.9 % (12.1-15.1); White Blood Count 15.2 10^3/uL (4.0-10.0)
--- NOTE | 2020-12-19 07:41 | P.PN_ITS ---
Subjective Subjective: Interval history: Patient overall feels better, tolerating p.o. intake No acute events overnight WBC count trending down to 15.2 Medications: Reviewed: Yes Vitals/I&O/Wt Last Vital Signs Temp 98.6 F 12/19/20 07:08 Pulse 74 12/19/20 07:08 Resp 18 12/19/20 07:08 BP 115/80 12/19/20 07:08 Pulse Ox 95 12/19/20 07:08 12/18/20 12/19/20 12/19/20 22:59 06:59 14:59 Intake Total 1000 / 1820 1100 / 2920 Output Total 400 / 900 650 / 1550 Balance 600 / 920 450 / 1370 Weight last 48 hrs Weight 278 lb Physical Exam Narrative: EXAM NARRATIVE: Patient is conscious alert oriented X3 BMI 42.3 Head and neck examination PERRLA no masses no cervical lymphadenopathy no jaundice Abdomen nontender nondistended soft no organomegaly guarding or rigidity/no signs of peritonitis Morbidly obese Physical examination of the right perianal area in the presence of female qa automation developer nursing staff Tesha Patient shows much less induration and and hardly any cellulitic changes around the site of the incision and drainage. Packing was removed and there is no evidence of pus and repacking was done by me bedside in the form of wet-to-dry Kerlix followed by Mario Data : 12/19/20 06:31 12/19/20 06:31 Micro: Microbiology 12/17/20 14:39 Blood Culture - Preliminary Blood NEGATIVE TO DATE 12/17/20 14:28 Blood Culture - Preliminary Blood NEGATIVE TO DATE A&P Assessment and plan (1) Abscess, perirectal: Patient is status post examination under anesthesia with incision and drainage of right perianal abscess 12/17/2020 : Continue daily wet-to-dry dressing change using Kerlix followed by ABDs and surgical pants. Pain control Parenteral broad-spectrum antibiotics Encourage mobility Continue pharmacologic DVT prophylaxis Assurance and education All questions have been answered and all concerns have been addressed to patient's satisfaction. Status: Acute Attestations Medical Necessity Statement*: Continue hospitalization for parenteral antimicrobial therapy and wound care with Repeat blood work in the morning. Time Spent in Patient Care: 16 - 35 minutes (>than 50% of time spent in counselling and/or direct pt care on unit) . Coding Level of Care Code Acute Upstream Biomanufacturing Technician for Viryg Fwd Diagnoses Abscess, perirectal K61.1
[2020-12-19 08:06] LABS: Anion Gap 9.4 (5-19); Blood Urea Nitrogen 14 mg/dL (6-20); Calcium 8.1 mg/dL (8.5-10.5); Carbon Dioxide 26 mmol/L (22-29); Chloride 108 mmol/L (98-107); Glomerular Filtration Rate 120.8 mL/min (90-130); Glucose 96 mg/dL (65-115); Osmolality Calculated 288 mOsm/kg (285-295); Potassium 4.4 mmol/L (3.5-5.1); Sodium 139 mmol/L (136-145)
[2020-12-19] MEDS: docusate sodium 100 mg Capsule PO ×2 (08:20→18:40)
[2020-12-19] MEDS: famotidine 20 mg/2 mL INJ IVP ×2 (08:34→20:38)
[2020-12-19] MEDS: HYDROcodone-acetaminophen 5-325 mg Tablet 1 TAB PO (12:05)
--- NOTE | 2020-12-19 20:02 | PC.NURSE ---
AT APPROXIMATELY 1000 AM PT DRESSING CHANGE WAS DONE BY DR DUONG WITH THIS NURSE ASSISTING, MOIST KERLEX PACKED INTO WOUND, WITH ABD COVERING AND MESH PANTIES OVER . PT TOLERATED WELL.
--- NOTE | 2020-12-19 20:03 | PC.NURSE ---
SHIFT SUMMARY PT HAS BEEN UP AMBULATING THE WARD 4-5 TIMES THIS SHIFT. SHE HAS NOT HAD A BM THIS SHIFT. PAIN HAS NOT BEEN UNDER A 6/10 THIS SHIFT, SHE HAS HAD TO TAKE IV MORPHINE THE HYDROCODONE IS NOT HELPING.
[2020-12-20] VITALS (11 sets, daily range): BP systolic 112–120; BP diastolic 73–80; PULSE 76–89; RESP 16–18; TEMP 36.7–37.2; O2SAT 90–93
[2020-12-20] MEDS: HYDROcodone-acetaminophen 5-325 mg Tablet 1 TAB PO ×3 (00:20→18:01)
[2020-12-20] MEDS: morphine 4 mg/mL SDV 1 mL 2 MG IVP ×5 (01:39→23:16)
[2020-12-20] MEDS: cyclobenzaprine 10 mg Tablet PO ×2 (03:41→20:21)
[2020-12-20] MEDS: metroNIDAZOLE IV 500 MG/100 ML PREMIX 100 MG IV ×3 (05:56→20:57)
[2020-12-20 07:51] LABS: Hemoglobin 10.3 g/dL (11.5-15.3); Mean Corpuscular HGB Conc 30.3 g/dL (30.0-36.0); Mean Corpuscular Hemoglobin 26.6 pg (28.0-34.0); Mean Corpuscular Volume 87.9 fL (81-99); Mean Platelet Volume 10.6 fL (7.4-10.4); Platelet Count 346 10^3/cmm (130-400); Red Blood Count 3.87 10^6/uL (4.1-5.3); Red Cell Distribution Width 15.1 % (12.1-15.1); White Blood Count 11.3 10^3/uL (4.0-10.0)
[2020-12-20] MEDS: famotidine 20 mg/2 mL INJ IVP ×2 (08:46→20:17)
[2020-12-20] MEDS: docusate sodium 100 mg Capsule PO ×2 (08:46→18:01)
[2020-12-20 08:47] LABS: Slide Review Slide Review Perform
[2020-12-20] MEDS: morphine 4 mg/mL SDV 1 mL IVP (08:56)
[2020-12-20 08:58] LABS: Absolute Eosinophils 0.1 10^3/cmm (0.0-0.7); Absolute Segmented Neutrophil 7.1 10/cmm (1.6-7.1); Band Neutrophils Absolute 0.5 10^3/cmm (0.0-1.2); Eosinophils 1 %; Lymphocytes 25 %; Monocytes Absolute 0.3 10^3/cmm (0.1-0.6); Segmented Neutrophils 63 %; Total Cells Counted 100 (0-100)
[2020-12-20 09:01] LABS: Absolute Neutrophil 7.6 10^3/cmm (1.4-6.5); Platelet Estimate Normal (Normal)
--- NOTE | 2020-12-20 13:50 | PM.PN ---
Subjective Subjective: Interval history: Patient feels a whole lot better, tolerating p.o. intake and trending down of leukocytosis 11.3 Vitals/I&O/Wt Last Vital Signs Temp 98.5 F 12/20/20 11:18 Pulse 77 12/20/20 11:18 Resp 18 12/20/20 11:18 BP 118/79 12/20/20 11:18 Pulse Ox 90 12/20/20 11:18 12/19/20 12/20/20 12/20/20 21:59 06:59 14:59 Intake Total 100 / 100 Output Total Balance 100 / 100 Physical Exam Narrative: EXAM NARRATIVE: Patient is conscious alert oriented X3 BMI 42.3 Head and neck examination PERRLA no masses no cervical lymphadenopathy no jaundice Abdomen nontender nondistended soft no organomegaly guarding or rigidity/no signs of peritonitis Morbidly obese Physical examination of the right perianal area in the presence of female electro winning operator nursing staff Keren Periwound area is much softer and less indurated and fading cellulitis Packing in place. Data : 12/20/20 06:38 12/19/20 06:31 Micro: Microbiology 12/17/20 17:20 Gram Stain - Final Anus Anaerobic Culture - Preliminary Tissue Culture - Preliminary Escherichia coli 12/17/20 17:20 Gram Stain - Final Anus Abscess Culture - Preliminary Gram Negative Rods A&P Assessment and plan (1) Abscess, perirectal: Patient is status post examination under anesthesia with incision and drainage of right perianal abscess 12/17/2020 : 1-nutrition optimization and focus on obesity management and weight reduction 2-wound care ;Continue daily wet-to-dry dressing change using Kerlix followed by ABDs and surgical pants 3-avoid constipation 4-educating the patient and mom about dressing change 5-Home health consultation 6-assurance and education 7-wound care center follow-up due to the patient's wound complexity All questions have been answered and all concerns have been addressed to patient's satisfaction. Will give the patient 150 mL of mag citrate to help her have a bowel movement then have her have the dressing change after showering. Plan to send patient home today on oral antibiotics in the form of ciprofloxacin and Flagyl for 10 days course and hydrocodone for pain control. Assurance and education All questions have been answered and all concerns have been addressed to patient's satisfaction. Status: Acute Attestations Medical Necessity Statement*: Inpatient hospitalization for medical management for antibiotics and surgical care for perianal abscess Time Spent in Patient Care: (>than 50% of time spent in counselling and/or direct pt care on unit). Coding Level of Care Code Acute White Metal Caster for Allison Riverad Diagnoses Abscess, perirectal K61.1
[2020-12-20] MEDS: magnesium citrate Btl 296 mL 150 ML PO (13:52)
--- NOTE | 2020-12-20 13:53 | P.DS_ITS ---
Discharge Providers Date of Admission: 12/18/20 17:41 Date of Discharge: December 20, 2020 Attending Provider at Admission: Jens Mao MD Attending Provider at Discharge: Jens Mao MD Primary Care Provider: Dayanara Grossman MD Diagnoses at Discharge Discharge Diagnosis (1) Abscess, perirectal: Status: Resolved Reason for Visit Reason for Visit: ABSCESS ON BUTTOCKS Hospital Course Hospital Course Patient after surgery did very well and her pain was under control. Continue to tolerate p.o. intake and continue to have stable vital signs with trending down of leukocytosis and no fevers. Continue to have parenteral antimicrobial therapy. And pharmacologic DVT prophylaxis. We will plan to discharge home today after having a bowel movement and instructions with education about dressing changes Plan to follow-up with me at the wound care center Patient will be discharged home on oral antibiotics and pain medications. Physical Exam Narrative: EXAM NARRATIVE: Patient is conscious alert oriented X3 BMI 42.3 Head and neck examination PERRLA no masses no cervical lymphadenopathy no jaundice Abdomen nontender nondistended soft no organomegaly guarding or rigidity/no signs of peritonitis Morbidly obese Physical examination of the right perianal area in the presence of female treasury associate nursing staff Keren Periwound area is much softer and less indurated and fading cellulitis Packing in place. Discharge Data Data Completed and Pending: Completed Studies During Hospitalization Category Date Time Status CT pelvis w con* [id number] Urgent Cat Scan 12/17/20 13:53 Completed Pending at discharge Category Date Time Status Abscess Culture a nd Gram Stain Rout ine Lab 12/17/20 17:20 Results Anaerobic Culture Routine Lab 12/17/20 17:20 Results Blood Culture Sta t Lab 12/17/20 14:28 Results Tissue Culture an d Gram Stain Routi ne Lab 12/17/20 17:20 Results Labs from last 24 hours 12/20/20 06:38 WBC 11.3 H RBC 3.87 L Hgb 10.3 L Hct 34.0 L MCV 87.9 MCH 26.6 L MCHC 30.3 RDW 15.1 Plt Count 346 MPV 10.6 H Lymph % (Auto) Not Reportable [place] % (Auto) Not Reportable Lymph # (Auto) Not Reportable [place] # (Auto) Not Reportable Total Counted 100 Atypical Lymphs % 1.0 Absolute Neutrophi ls 7.6 H Segmented Neutroph ils 63 Abs Segm Neuts (Ma n) 7.1 Band Neutrophils 4.0 Abs Band Neuts (Ma n) 0.5 Lymphocytes (Manua l) 25 Monocytes (Manual) 3.0 Absolute Monocytes 0.3 Eosinophils (Manua l) 1 Absolute Eosinophi ls 0.1 Basophils (Manual) 0.0 Absolute Basophils 0.0 Metamyelocytes 1.0 Myelocytes 2.0 Platelet Estimate Normal Vitals: Last Vital Signs Temp 98.5 F 12/20/20 11:18 Pulse 77 12/20/20 11:18 Resp 18 12/20/20 11:18 BP 118/79 12/20/20 11:18 Pulse Ox 90 12/20/20 11:18 Discharge Plan Discharge Patient Disposition: Home Condition: Stable Prescriptions: New Flagyl 500 mg tablet 500 mg PO Q8H 10 Days Qty: 30 RF: 0 [place] 5-325 mg tablet 1 tab PO Q6H PRN (Reason: pain) Qty: 28 RF: 0 Augmentin 875-125 mg tablet 1 tab PO Q12H 10 Days Qty: 20 RF: 0 Continued levothyroxine 125 mcg Tablet 125 mcg PO DAILY RF: 0 buspirone 10 mg tablet 10 mg PO TID PRN (Reason: Anxiety) RF: 0 aripiprazole 5 mg tablet 5 mg PO BEDTIME RF: 0 duloxetine 60 mg capsule,delayed release(DR/EC) 60 mg PO DAILY RF: 0 acetaminophen 500 mg Tablet 500 mg PO Q6H PRN (Reason: Pain) RF: 0 Discharge Orders: Discharge Order (Routine); Ordered 12/20/20 Ordered By: Jens Mao Referrals: Jens Mao MD [Physician] - (Return to wound care center to follow-up with Dr. Mao first available. Due to the complexity of the wound.) Dayanara Grossman MD [Primary Care Provider] - Discharge Diet: Advance as tolerated Discharge Activity: Limit activity as instructed Activity Restrictions/Additional Instructions: 1. Patient can shower after 48 hours from surgery 2. Remove packing daily and change using Kerlix wet-to-dry using saline, followed by ABDs and pen 3. Up and walking as tolerated 4. Do not lift heavily 5. Do not operate heavy machinery or drive while using pain medications. 6.Contact the office or return to the ER for worsening nausea vomiting fevers or chills, or noticing any redness around incision sites or discharge. 7. Avoid constipation Discharge Attestations Time Spent in Discharge Care*: less than 30 min Specific Discharge Activities: educating patient and educating and/or supporting family/caregiver Status at Discharge: Cognitive status at discharge: cognitively intact , Behavioral status at discharge: cooperative , Functional status at discharge: independent ambulation Overall status at discharge: patient is progressing back to baseline Quality Metrics Clinical Quality Measures During this hospital stay, did patient experience: None Coding Level of Care Code Acute Viry LOUANN SUMNER note Diagnoses Abscess, perirectal K61.1
[2020-12-20] MEDS: lactulose oral liq 20 gm/30 mL UDC PO (16:03)
[2020-12-20] MEDS: sodium chloride 0.9% 1,000 ML 100 ML IV (19:25)
[2020-12-20] MEDS: psyllium powder Pkt 1 PACKET PO (23:11)
[2020-12-21] VITALS (7 sets, daily range): BP systolic 110–118; BP diastolic 71–79; PULSE 77–86; RESP 16–18; TEMP 36.6–37.1; O2SAT 93–96
--- NOTE | 2020-12-21 00:19 | PC.NURSE ---
O2 Sats Patient placed on 2L/NC O2 for O2 saturations of 88% on room air. Patient did receive 2mg IVP Morphine for pain recently and states that I had to wear oxygen the other night after I got morphine too . Pt. sats came up to 94% immediately after being placed on 2L.
[2020-12-21] MEDS: HYDROcodone-acetaminophen 5-325 mg Tablet 1 TAB PO ×3 (02:03→14:10)
[2020-12-21 06:00] LABS: Basophils # 0.1 10^3/uL (0.0-0.1); Basophils % 1.1 %; Eosinophils # 0.2 10^3/uL (0.0-0.8); Hematocrit 35.8 % (37.0-47.0); Hemoglobin 11.2 g/dL (11.5-15.3); Lymphocytes % 27.9 %; Mean Corpuscular HGB Conc 31.3 g/dL (30.0-36.0); Mean Corpuscular Hemoglobin 26.4 pg (28.0-34.0); Mean Corpuscular Volume 84.2 fL (81-99); Mean Platelet Volume 10.1 fL (7.4-10.4); Monocytes # 0.5 10^3/uL (0.2-0.9); Monocytes % 4.7 %; Neutrophils # 5.97 10^3/uL (1.8-7.7); Neutrophils % 56.5 %; Nucleated Red Blood Cells # 0.1 /100WBC; Nucleated Red Blood Cells % 0.6 %; Platelet Count 398 10^3/cmm (130-400); Red Blood Count 4.25 10^6/uL (4.1-5.3); Red Cell Distribution Width 14.9 % (12.1-15.1); White Blood Count 10.6 10^3/uL (4.0-10.0)
--- NOTE | 2020-12-21 06:04 | PM.PN ---
Subjective Subjective: Interval history: Patient seems to be overall doing and feeling better.Patient was kept overnight as she did not have a bowel movement yet or passing gas but she started passing more gas now. More trending down of WBC count. Vitals/I&O/Wt Last Vital Signs Temp 98.2 F 12/21/20 04:00 Pulse 77 12/21/20 04:00 Resp 18 12/21/20 04:00 BP 116/79 12/21/20 04:00 Pulse Ox 93 12/21/20 04:00 12/20/20 12/20/20 12/21/20 14:59 22:59 06:59 Intake Total 320 / 320 1080 / 1400 Output Total 2450 / 2450 Balance 320 / 320 -1370 / -1050 Physical Exam Narrative: EXAM NARRATIVE: Patient is conscious alert oriented X3 BMI 42.3 Head and neck examination PERRLA no masses no cervical lymphadenopathy no jaundice Abdomen nontender nondistended soft no organomegaly guarding or rigidity/no signs of peritonitis Morbidly obese Right perianal area shows no induration or cellulitis physical examination was done in the presence of certified nurse distribution center assistant Rand. Data : 12/21/20 05:13 12/19/20 06:31 Micro: Microbiology 12/17/20 17:20 Gram Stain - Final Anus Anaerobic Culture - Preliminary Anaerobic gram negative rods Tissue Culture - Preliminary Escherichia coli 12/17/20 17:20 Gram Stain - Final Anus Abscess Culture - Preliminary Escherichia coli A&P Assessment and plan (1) Abscess, perirectal: Patient is status post examination under anesthesia with incision and drainage of right perianal abscess 12/17/2020 : 1-nutrition optimization and focus on obesity management and weight reduction 2-wound care ;Continue daily wet-to-dry dressing change using Kerlix followed by ABDs and surgical pants upon discharge 3-avoid constipation 4-educating the patient and mom about dressing change 5-Home health consultation 6-assurance and education 7-wound care center follow-up due to the patient's wound complexity All questions have been answered and all concerns have been addressed to patient's satisfaction. Plan to send patient home today on oral antibiotics in the form of Augmentin and Flagyl for 10 days course and hydrocodone for pain control. Assurance and education All questions have been answered and all concerns have been addressed to patient's satisfaction. Status: Resolved Attestations Medical Necessity Statement*: Inpatient hospitalization for medical management for antibiotics and surgical care for perianal abscess Plan to discharge home today Time Spent in Patient Care: (>than 50% of time spent in counselling and/or direct pt care on unit). Coding Level of Care Code Acute Manufacturing Production Manager for [employer] [facility] Diagnoses Abscess, perirectal K61.1
[2020-12-21] MEDS: metroNIDAZOLE IV 500 MG/100 ML PREMIX 100 MG IV (06:44)
[2020-12-21] MEDS: magnesium citrate Btl 296 mL PO (06:44)
[2020-12-21 06:50] LABS: Slide Review Slide Review Perform
[2020-12-21] MEDS: morphine 4 mg/mL SDV 1 mL 2 MG IVP ×2 (06:53→11:23)
[2020-12-21] MEDS: psyllium powder Pkt 1 PACKET PO (08:49)
[2020-12-21] MEDS: docusate sodium 100 mg Capsule PO (08:49)
[2020-12-21] MEDS: famotidine 20 mg/2 mL INJ IVP (08:49)
--- NOTE | 2020-12-21 18:48 | PC.NURSE ---
Waste Morphine- Morphine 2mg was pulled to give to patient prior to wound dressing change. Patient's IV was leaking and patient refused to have another IV started to administer the medication. Patient was discharged from the facility before return of medication to the xis to be wasted. Medication was wasted with myself and Keren Dia RN.
--- NOTE | 2020-12-21 20:09 | PC.NURSE ---
jaelyn pt was sent home with supplies for drsg changes.
== END 2020-12-21 14:40 | disposition home or self-care (01) | DRG 580 ==
LOC: ER 15:49 → OR 16:16 → MEDSURG 17:41
PROVIDERS: Admitting Provider Surgery; Emergency Provider Physician Assistant; PCP Family Medicine; Visit Provider Surgery
PROC: 0H99XZZ Drainage of Perineum Skin, External Approach (ICD-10-PCS; CPT 46040; principal; 2020-12-17 15:55)
DX: L02.215 Cutaneous abscess of perineum (principal); Z68.41 Body mass index [BMI] 40.0-44.9, adult; E66.01 Morbid (severe) obesity due to excess calories; R59.0 Localized enlarged lymph nodes
CPT/HCPCS: 36415; 72193; 80048; 80053; 83605; 84703; 85007; 85025; 86140; 87040; 87070; 87075; 87077; 87176; 87186; 87205; 96365; 96367; 96375; 99285; A6446; G0378; J0131; J0330; J0744; J1100; J2001; J2250; J2270; J2405; J2704; J3010; J3490; J7030; Q9967; S0030

== ENCOUNTER 2020-12-25 08:26 | Outpatient (CLI) | payer OTHER, SELFPAY | END 2020-12-25 08:27 | disposition home or self-care (01) | LOC: WOUND 08:27 | PROVIDERS: PCP Family Medicine; Visit Provider Nurse Practitioner Family | DX: T81.89XA Other complications of procedures, not elsewhere classified, initial encounter (principal) | CPT/HCPCS: 11042; 11045 ==

== ENCOUNTER 2021-01-01 11:13 | Outpatient (CLI) | payer OTHER, SELFPAY | END 2021-01-01 11:14 | disposition home or self-care (01) | LOC: WOUND 11:13 | PROVIDERS: PCP Family Medicine; Visit Provider Surgery | DX: T81.89XA Other complications of procedures, not elsewhere classified, initial encounter (principal) | CPT/HCPCS: 11042 ==

== ENCOUNTER 2021-01-15 15:05 | Outpatient (CLI) | payer OTHER, SELFPAY | END 2021-01-15 15:06 | disposition home or self-care (01) | LOC: WOUND 15:05 | PROVIDERS: PCP Family Medicine; Visit Provider Surgery | DX: T81.89XA Other complications of procedures, not elsewhere classified, initial encounter (principal) | CPT/HCPCS: 11043 ==

== ENCOUNTER 2021-01-22 14:30 | Outpatient (CLI) | payer OTHER, SELFPAY | END 2021-01-22 14:31 | disposition home or self-care (01) | LOC: WOUND 14:30 | PROVIDERS: PCP Family Medicine; Visit Provider Surgery | DX: T81.89XA Other complications of procedures, not elsewhere classified, initial encounter (principal) | CPT/HCPCS: 11042 ==

== ENCOUNTER 2021-01-29 14:19 | Outpatient (CLI) | payer OTHER, SELFPAY | END 2021-01-29 14:20 | disposition home or self-care (01) | LOC: WOUND 14:20 | PROVIDERS: PCP Family Medicine; Visit Provider Surgery | DX: T81.89XA Other complications of procedures, not elsewhere classified, initial encounter (principal) | CPT/HCPCS: 11042 ==

== ENCOUNTER 2021-02-05 14:32 | Outpatient (CLI) | payer OTHER, SELFPAY | END 2021-02-05 14:33 | disposition home or self-care (01) | LOC: WOUND 14:33 | PROVIDERS: PCP Family Medicine; Visit Provider Surgery | DX: T81.89XA Other complications of procedures, not elsewhere classified, initial encounter (principal) | CPT/HCPCS: 11042 ==

== ENCOUNTER 2021-02-18 08:05 | Outpatient (CLI) | payer OTHER, SELFPAY | END 2021-02-18 08:06 | disposition home or self-care (01) | LOC: WOUND 08:05 | PROVIDERS: PCP Family Medicine; Visit Provider Nurse Practitioner Family | DX: T81.89XA Other complications of procedures, not elsewhere classified, initial encounter (principal) | CPT/HCPCS: 11042; 99212 ==

== ENCOUNTER 2021-02-26 07:43 | Outpatient (CLI) | payer OTHER, SELFPAY | END 2021-02-26 07:44 | disposition home or self-care (01) | LOC: WOUND 07:44 | PROVIDERS: PCP Family Medicine; Visit Provider Thoracic Surgery (Cardiothoracic Vascular Surgery) | DX: Z09 Encounter for follow-up examination after completed treatment for conditions other than malignant neoplasm (principal) ==

== ENCOUNTER 2021-03-24 11:28 | Outpatient (CLI) | payer OTHER, SELFPAY ==
[2021-03-24 11:56] LABS: HCG Qualitative Urine. Positive (Negative)
== END 2021-03-24 11:29 | disposition home or self-care (01) ==
PROVIDERS: PCP Family Medicine; Visit Provider Family Medicine
DX: N91.2 Amenorrhea, unspecified (principal)
CPT/HCPCS: 81025

== ENCOUNTER → 2021-04-02 09:56 | Outpatient (BNVA) | payer OTHER, SELFPAY | PROVIDERS: PCP Family Medicine; Referring Provider Family Medicine; Visit Provider Nurse Practitioner Women's Health | DX: N92.6 Irregular menstruation, unspecified (principal); F41.9 Anxiety disorder, unspecified; F32.9 Major depressive disorder, single episode, unspecified | CPT/HCPCS: 81025 ==

== ENCOUNTER → 2021-04-26 13:33 | Outpatient (BNVA) | payer OTHER, MEDICAID, SELFPAY | PROVIDERS: PCP Family Medicine; Visit Provider Nurse Practitioner Family | DX: J06.9 Acute upper respiratory infection, unspecified (principal); Z20.822 Contact with and (suspected) exposure to COVID-19 | CPT/HCPCS: 87635 ==

== ENCOUNTER → 2021-05-04 11:57 | Outpatient (BNVA) | payer OTHER, MEDICAID, SELFPAY | PROVIDERS: PCP Family Medicine; Visit Provider Obstetrics & Gynecology | DX: O99.211 Obesity complicating pregnancy, first trimester (principal) | CPT/HCPCS: 80307; 82950; 84315; 84443; 85027; 86592; 86762; 86803; 86850; 86900; 87077; 87086; 87184; 87340 ==

== ENCOUNTER → 2021-05-05 17:13 | Outpatient (BNVA) | payer OTHER, MEDICAID, SELFPAY | PROVIDERS: PCP Family Medicine; Visit Provider Obstetrics & Gynecology | DX: O99.211 Obesity complicating pregnancy, first trimester (principal); R79.89 Other specified abnormal findings of blood chemistry | CPT/HCPCS: 84439; 84481 ==

== ENCOUNTER → 2021-05-19 14:18 | Outpatient (BNVA) | payer OTHER, MEDICAID, SELFPAY | PROVIDERS: PCP Family Medicine; Visit Provider Family Medicine | DX: Z20.822 Contact with and (suspected) exposure to COVID-19 (principal) | CPT/HCPCS: 87635 ==

== ENCOUNTER → 2021-05-24 15:07 | Outpatient (BNVA) | payer OTHER, MEDICAID, SELFPAY | PROVIDERS: PCP Family Medicine; Visit Provider Obstetrics & Gynecology | DX: Z34.80 Encounter for supervision of other normal pregnancy, unspecified trimester (principal) | CPT/HCPCS: 84315; 87491; 87591; 88175 ==

== ENCOUNTER → 2021-06-17 09:41 | Outpatient (BNVA) | payer OTHER, MEDICAID, SELFPAY | PROVIDERS: PCP Family Medicine; Visit Provider Nurse Practitioner Women's Health | DX: Z34.01 Encounter for supervision of normal first pregnancy, first trimester (principal) | CPT/HCPCS: 84315; 84439; 84443; 84481; 87086; 87806 ==

== ENCOUNTER → 2021-06-29 14:53 | Outpatient (BNVA) | payer OTHER, MEDICAID, SELFPAY | PROVIDERS: PCP Family Medicine; Visit Provider Obstetrics & Gynecology | DX: R39.15 Urgency of urination (principal); R35.0 Frequency of micturition | CPT/HCPCS: 81000; 87086 ==

== ENCOUNTER 2021-07-21 12:06 | Emergency (ER) | payer OTHER, SELFPAY ==
[2021-07-21 12:12] VITALS: BP 153/89; PULSE 89; RESP 17; TEMP 37; O2SAT 100; BMI 49.8
--- NOTE | 2021-07-21 12:34 | XR_ITS ---
WS: [id number] XR chest 1V portable [id number] REASON FOR EXAM: chest pain; shield/preg FINDINGS: The heart and mediastinum are within normal limits. Calcified granulomatous disease in both hemithoraces. No active pulmonary parenchymal or pleural disease noted. No significant abnormality of the bony thorax. XR/XR chest 1V portable [id number] IMPRESSION: No acute chest abnormality.
--- NOTE | 2021-07-21 12:34 | ECG_ITS ---
[facility] Test Date: 2021-07-21 Pat Name: Little Grier Department: Room: Gender: Female Paper Handler: : 1995 Requested By: Tatiana Lord Order Number: [id number] Nima MD: Michelle Foss M.D. Measurements Intervals [place] Rate: 84 P: 16 [place]: 167 QRS: 32 QRSD: 86 T: 24 QT: 386 QTc: 458 Interpretive Statements SINUS RHYTHM Compared to ECG 01/28/2016 17:03:56 T-wave abnormality no longer present Electronically Signed On 07-21-2021 20:13:47 CDT by Michelle Foss M.D. [id number]
--- NOTE | 2021-07-21 15:31 | ED_ITS ---
HPI - Headache General: Chief Complaint: Headache Stated Complaint: SOB,H/A,NEAR SYNCOPY,CP:[facility] Time Seen by Provider: 07/21/21 15:21 History of Present Illness: HPI Narrative: 26-year-old female brought to the emergency room with lightheadedness headache and dizziness. She came by private vehicle from the OB clinic. She currently is 21 weeks and she is has a history of migraines but she states this is not as bad as of her usual migraines. The nausea and vomiting are more prominent. MD elicited complaint: headache Onset (ago): minute(s) Onset description: suddenly Severity: moderate Quality & Timing: throbbing Exacerbating factors: none Relieving factors: nothing Context: occurred at rest Associated symptoms: Reports lightheadedness, malaise, vomiting and weakness; Deny chest pain, confusion, cough, diaphoresis, eye pain, eye redness, fever(s), loss of vision, nausea, neck stiffness, numbness, paresthesias, photophobia, pre-syncope, rash, seizures, short of breath, sound sensitivity or syncope Treatments prior to arrival: acetaminophen Review of Systems Const: Reports: malaise; Denies: fever(s) or diaphoresis Card: Reports: lightheadedness; Denies: chest pain, syncope or pre-syncope GI: Reports: vomiting; Denies: nausea Skin/Breast: Denies: rash Neuro: Denies: confusion PFS ED PFSH: Medical History Anxiety and depression Diagnosed in 2018. She did do therapy in the past but not currently. Was on medication prior to the -Cymbalta, clonazepam and citalopram managed by her primary care provider. She stopped when she found out she was in 2020 No pertinent past medical history Denies diabetes, asthma, hypertension, seizures, DVT/PE PCP: Dr. Tyler Surgical History History of incision and drainage (~12/2020) for rectal abscess performed by Dr. Mao at [facility] Family History Family/Other Diabetes Maternal Uncle Mother Hypertension Thyroid disease Denies family history of Colon cancer Ovarian cancer Heart disease Hypercholesteremia Breast cancer Uterine cancer Stroke Social History Smoking and tobacco status: never smoked Female Reproductive History: Date of last menstrual period: 12/14/20 Physical Exam Const: COMMON NORMALS: no acute distress GENERAL APPEARANCE: cooperative and comfortable ORIENTATION/CONSCIOUSNESS: Yes awake, Yes oriented to person, Yes oriented to place and Yes oriented to time HENMT: COMMON NORMALS: normocephalic, atraumatic and hearing grossly normal bilaterally HEAD & SCALP: normocephalic and atraumatic Eye: DIRECT OPHTHALMOSCOPY: No photophobia Neck/C-Spine: COMMON NORMALS: no JVD Resp: COMMON NORMALS: normal respiratory effort, No retractions, No use of accessory muscles and clear to auscultation bilaterally AUSCULTATION: clear to auscultation bilaterally Cardio: COMMON NORMALS: no JVD, regular rate, regular rhythm and No murmurs present (Cardio) RATE: regular rate RHYTHM: regular rhythm GI: COMMON NORMALS: Soft to palpation and No hepatosplenomegaly present AUSCULTATION: Yes normoactive bowel sounds PALPATION: Yes Soft to palpation, No Tenderness to palpation present (GI), No Guarding due to palpation present (GI) and Yes No hepatosplenomegaly present Extremity: COMMON NORMALS: normal to inspection, capillary refill normal, no clubbing, cyanosis or edema, no calf tenderness and no pedal edema Neuro: SENSORIUM/ORIENTATION: Yes oriented to person, Yes oriented to place and Yes oriented to time Skin: COMMON NORMALS: no rashes or lesions noted GENERAL SKIN EXAM: no rashes or lesions noted Course Vital Signs: Vital signs: Vital Signs Temperature 98.6 F 07/21/21 12:12 Pulse Rate 86 07/21/21 18:34 Respiratory Rate 18 07/21/21 18:34 Blood Pressure 124/74 07/21/21 18:34 Pulse Oximetry 98 07/21/21 18:34 MDM - Headache MDM Narrative: Medical decision making narrative: After fluids and antibiotics patient is feeling better discharge home with promethazine to use as needed follow-up with primary care at and/or OB if has any worsening symptoms return Lab Data: Labs: Lab Results 07/21/21 07/21/21 07/21/21 16:00 16:07 16:07 WBC 12.8 10^3/uL H 10 ^3/uL (4.0-10.0) RBC 4.19 10^6/uL 10^6 /uL (4.1-5.3) Hgb 11.1 g/dL L g/dL (11.5-15.3) Hct 35.2 % L % (37.0-47.0) MCV 84.0 fl fl (81-99) MCH 26.5 pg L pg (28.0-34.0) MCHC 31.5 g/dL g/dL (30.0-36.0) RDW 14.8 % % (12.1-15.1) Plt Count 364 10^3/cmm 10^3 /cmm (130-400) MPV 10.3 fL fL (7.4-10.4) Neut % (Auto) 74.0 % % Lymph % (Auto) 19.0 % % [place] % (Auto) 5.1 % % Eos % (Auto) 0.7 % % Baso % (Auto) 0.3 % % Neut # (Auto) 9.45 10^3/uL H 10 ^3/uL (1.8-7.7) Lymph # (Auto) 2.4 10^3/uL 10^3/ uL (0.8-4.8) [place] # (Auto) 0.7 10^3/uL 10^3/ uL (0.2-0.9) Eos # (Auto) 0.1 10^3/uL 10^3/ uL (0.0-0.8) Baso # (Auto) 0.0 10^3/uL 10^3/ uL (0.0-0.1) Nucleated RBC % (a uto) 0 % % Nucleated RBCs # 0.0 /100WBC /100W BC Sodium 135 mmol/L L mmol /L (136-145) Potassium 3.8 mmol/L mmol/L (3.5-5.1) Chloride 99 mmol/L mmol/L (98-107) Carbon Dioxide 23 mmol/L mmol/L (22-29) Anion Gap 16.8 (5-19) BUN 8 mg/dL mg/dL (6-20) Creatinine 0.5 mg/dL mg/dL (0.5-0.9) GFR Calculation 148.0 mL/min H mL /min (90-130) Glucose 74 mg/dL mg/dL (65-115) Calculated Osmolal ity 277 mOsm/kg L mOs m/kg (285-295) Calcium 9.0 mg/dL mg/dL (8.5-10.5) Total Bilirubin 0.2 mg/dL mg/dL (0.15-1.2) AST 10 U/L U/L (0-32) ALT 9 U/L U/L (0-33) Alkaline Phosphata se 55 IU/L IU/L (35-105) Creatine Kinase 32 U/L U/L (26-192) Total Protein 7.5 g/dL g/dL (6.6-8.7) Albumin 3.6 g/dL g/dL (3.5-5.2) Globulin 3.9 g/dL g/dL (1.3-4.6) Urine Color Yellow (Yellow) Urine Appearance Clear (CLEAR) Urine pH 5 (5-7) Ur Specific Gravit y 1.025 (1.005-1.030) Urine Protein Neg (Negative) Urine Glucose (UA) Norm (Normal) Urine Ketones 3+ H (Negative) Urine Blood Neg (Negative) Urine Nitrate Negative (Negative) Urine Bilirubin Neg (Negative) Urine Urobilinogen Norm mg/dL mg/dL (Negative) Ur Leukocyte Bronwyn ase Negative (Negative) Discharge Plan Discharge Patient Disposition: Home Clinical Impression: Headache, Dehydration, mild, Condition: Stable Prescriptions: New promethazine 25 mg tablet 25 mg PO Q6H PRN (Reason: nausea and vomiting) Qty: 14 RF: 0 No Action prenat.vits,eleonora,vvt-hhbf-npjlc Tablet 1 tab PO DAILY RF: 0 buspirone 7.5 mg tablet 7.5 mg PO BID PRNRF: 0 levothyroxine 88 mcg capsule 88 mcg PO DAILY Qty: 30 RF: 0 acetaminophen 500 mg Tablet 500 mg PO Q6H PRN (Reason: Pain) RF: 0 Discharge Orders: Discharge ED (Routine); Ordered 07/21/21 Ordered By: Chris Ortega Referrals: Natasha Tyler MD [Primary Care Provider] - Discharge Diet: Usual diet Discharge Activity: Increase activity as tolerated Patient Instructions: Opioid Safety Coding Level of Care Code ED Handkerchief Presser for Chg Fwd Exam Comprehensive
[2021-07-21 16:16] LABS: Basophils % 0.3 %; Eosinophils # 0.1 10^3/uL (0.0-0.8); Eosinophils % 0.7 %; Hematocrit 35.2 % (37.0-47.0); Hemoglobin 11.1 g/dL (11.5-15.3); Lymphocytes # 2.4 10^3/uL (0.8-4.8); Mean Corpuscular HGB Conc 31.5 g/dL (30.0-36.0); Mean Corpuscular Hemoglobin 26.5 pg (28.0-34.0); Mean Platelet Volume 10.3 fL (7.4-10.4); Monocytes # 0.7 10^3/uL (0.2-0.9); Monocytes % 5.1 %; Neutrophils # 9.45 10^3/uL (1.8-7.7); Nucleated Red Blood Cells % 0 %; Platelet Count 364 10^3/cmm (130-400); Red Blood Count 4.19 10^6/uL (4.1-5.3); Red Cell Distribution Width 14.8 % (12.1-15.1); White Blood Count 12.8 10^3/uL (4.0-10.0)
[2021-07-21 16:29] LABS: Add Urine Microscopic? NO; Charge for UA Resulting for Rev
[2021-07-21] MEDS: sodium chloride 0.9% 1,000 ML 999 ML IV (16:41)
[2021-07-21] MEDS: diphenhydrAMINE 50 mg/mL SDV 1mL 25 MG IVP (16:41)
[2021-07-21] MEDS: promethazine 25 mg/mL SDV 1 mL IM (16:41)
[2021-07-21 16:49] VITALS: BP 130/100; PULSE 69; RESP 18; O2SAT 100
[2021-07-21 16:49] LABS: Alanine Aminotransferase 9 U/L (0-33); Albumin Level 3.6 g/dL (3.5-5.2); Alkaline Phosphatase 55 IU/L (35-105); Anion Gap 16.8 (5-19); Aspartate Amino Transferase 10 U/L (0-32); Blood Urea Nitrogen 8 mg/dL (6-20); Carbon Dioxide 23 mmol/L (22-29); Chloride 99 mmol/L (98-107); Creatine Phosphokinase 32 U/L (26-192); Globulin 3.9 g/dL (1.3-4.6); Glucose 74 mg/dL (65-115); Osmolality Calculated 277 mOsm/kg (285-295); Potassium 3.8 mmol/L (3.5-5.1); Sodium 135 mmol/L (136-145); Total Bilirubin 0.2 mg/dL (0.15-1.2); Total Protein 7.5 g/dL (6.6-8.7)
[2021-07-21 16:52] LABS: Bilirubin Urine Neg (Negative); Blood Urine Neg (Negative); Glucose Urine UA Norm (Normal); Ketones Urine 3+ (Negative); Leukocyte Esterase Urine Negative (Negative); Nitrate Urine Negative (Negative); Protein Urine Neg (Negative); Specific Gravity, Urine 1.025 (1.005-1.030); Urine Appearance Clear (CLEAR); Urine Color Yellow (Yellow); Urobilinogen Urine Norm (Negative); pH Urine 5 (5-7)
[2021-07-21 17:41] VITALS: BP 130/100; PULSE 69; RESP 18; O2SAT 100
[2021-07-21 18:34] VITALS: BP 124/74; PULSE 86; RESP 18; O2SAT 98
== END 2021-07-21 18:34 | disposition home or self-care (01) ==
PROVIDERS: Emergency Provider Family Medicine; PCP Family Medicine
DX: O26.892 Other specified pregnancy related conditions, second trimester (principal); R51.9 Headache, unspecified; E86.0 Dehydration; Z3A.21 21 weeks gestation of pregnancy
CPT/HCPCS: 71045; 80053; 81003; 82550; 85025; 93005; 96361; 96372; 96374; 99284; J1200; J2550; J7030

== ENCOUNTER → 2021-07-23 10:13 | Outpatient (BNVA) | payer OTHER, SELFPAY | PROVIDERS: PCP Family Medicine; Visit Provider Obstetrics & Gynecology | DX: A74.9 Chlamydial infection, unspecified; O98.819 Other maternal infectious and parasitic diseases complicating pregnancy, unspecified trimester; E03.9 Hypothyroidism, unspecified; F41.9 Anxiety disorder, unspecified; F32.9 Major depressive disorder, single episode, unspecified; O99.891 Other specified diseases and conditions complicating pregnancy; R82.71 Bacteriuria; O26.899 Other specified pregnancy related conditions, unspecified trimester; Z67.91 Unspecified blood type, Rh negative; Z28.3 Underimmunization status; O99.211 Obesity complicating pregnancy, first trimester | CPT/HCPCS: 84315; 84443; 87491; 87591 ==

== ENCOUNTER → 2021-08-05 13:46 | Outpatient (BNVA) | payer OTHER, SELFPAY | PROVIDERS: PCP Family Medicine; Visit Provider Family Medicine | DX: Z20.822 Contact with and (suspected) exposure to COVID-19 (principal) | CPT/HCPCS: 87635 ==

== ENCOUNTER 2021-08-20 08:50 | Outpatient (CLI) | payer OTHER, MEDICAID, SELFPAY ==
[2021-08-20] VITALS (15 sets, daily range): BP systolic 97–124; BP diastolic 55–87; PULSE 83–104; RESP 16; TEMP 35.5–36.1; BMI 51.3
--- NOTE | 2021-08-20 09:30 | US_ITS ---
WS: [id number] ULTRASOUND OB LIMITED TECHNIQUE: Limited ultrasound examination of the fetus. CLINICAL INFORMATION: Vaginal Bleeding COMPARISON: July 15, 2021 FINDINGS: Cervix measures 4.5 cm. Cervix is long and closed. Single interuterine gestation. presentation is breech Placental location is posterior completely covering the cervix consistent with total previa. Placenta grade: 0. heart rate 150 BPM. Gestational age 25 weeks 1 day Estimated delivery December 02, 2021 US/US OB limited [id number] IMPRESSION: 1. Cervix is long and closed measuring 4.5 CM. 2. Placenta previa completely covering the cervix. This appears new compared t o the prior examination. Placenta is posterior. Recommend additional late third trimester follow-up. 3. presentation is breech.
[2021-08-20 10:08] LABS: Bilirubin Urine Neg (Negative); Blood Urine Neg (Negative); Glucose Urine UA Norm (Normal); Ketones Urine Negative (Negative); Leukocyte Esterase Urine Negative (Negative); Nitrate Urine Negative (Negative); Protein Urine Neg (Negative); Urine Appearance SL Hazy (CLEAR); Urine Color Straw (Yellow); Urobilinogen Urine Norm (Negative); pH Urine 7 (5-7)
[2021-08-20 10:10] LABS: Add Urine Culture? No; Bacteria Urine 1+ /hpf
== END 2021-08-20 12:55 | disposition home or self-care (01) ==
LOC: OPOB 09:03 → OBGYN 09:04
PROVIDERS: PCP Family Medicine; Visit Provider Obstetrics & Gynecology
DX: O46.92 Antepartum hemorrhage, unspecified, second trimester (principal); Z3A.25 25 weeks gestation of pregnancy
CPT/HCPCS: 36415; 76815; 81001; 85460; 86850; 86900; 90384; 99211

== ENCOUNTER 2021-08-25 11:35 | Outpatient (CLI) | payer OTHER, MEDICAID, SELFPAY ==
[2021-08-25 11:53] VITALS: BP 115/65; PULSE 113; TEMP 35.2
[2021-08-25 12:07] VITALS: RESP 18; BMI 50.9
[2021-08-25 12:14] VITALS: BP 106/55; PULSE 95
[2021-08-25 12:34] VITALS: BP 123/77; PULSE 93
== END 2021-08-25 12:55 | disposition home or self-care (01) ==
LOC: OPOB 11:42 → OBGYN 11:43
PROVIDERS: PCP Family Medicine; Visit Provider Obstetrics & Gynecology
DX: O46.90 Antepartum hemorrhage, unspecified, unspecified trimester (principal)
CPT/HCPCS: 99211

== ENCOUNTER → 2021-09-08 13:23 | Outpatient (BNVA) | payer OTHER, SELFPAY | PROVIDERS: PCP Family Medicine; Visit Provider Obstetrics & Gynecology | DX: O26.899 Other specified pregnancy related conditions, unspecified trimester (principal); Z67.91 Unspecified blood type, Rh negative | CPT/HCPCS: 80500; 82950; 84315; 84443; 85027; 86850; 86870 ==

== ENCOUNTER 2021-09-17 15:30 | Outpatient (CLI) | payer OTHER, SELFPAY ==
[2021-09-17] VITALS (44 sets, daily range): BP systolic 97–146; BP diastolic 55–97; PULSE 90–116; RESP 18; O2SAT 92–100; BMI 52.2
--- NOTE | 2021-09-17 16:49 | USR_ITS ---
PROCEDURE INFORMATION: Exam: US , Limited Exam date and time: 09/17/2021 4:49 PM Age: 26 years old Clinical indication: Screening exam; Other: ? Placenta placement and previa and cervix; ; Additional info: Placenta placement, cervical dilation, cervical length TECHNIQUE: Imaging protocol: Real-time ultrasound of the maternal uterus with image documentation. Exam focused on the clinical indication. COMPARISON: US OB limited [facility] 09/08/2021 11:10 AM FINDINGS: Gestation: Single intrauterine . heart rate: heart rate 150 bpm. presentation: Breech presentation Placenta: Placenta is posterior without abnormality. MATERNAL: Cervix: Cervix closed and normal length measuring 4.5 cm. US/US OB limited [id number] IMPRESSION: 1. Single intrauterine . 2. Cervix closed and normal length measuring 4.5 cm. 3. Placenta is posterior without abnormality. 4. heart rate 150 bpm. 5. Breech presentation
[2021-09-17 17:17] LABS: Add Urine Microscopic? NO; Charge for UA Resulting for Rev
[2021-09-17 17:23] LABS: Bilirubin Urine Neg (Negative); Blood Urine Neg (Negative); Glucose Urine UA Norm (Normal); Ketones Urine Negative (Negative); Leukocyte Esterase Urine Negative (Negative); Nitrate Urine Negative (Negative); Protein Urine Neg (Negative); Urine Appearance Clear (CLEAR); Urine Color Yellow (Yellow); Urobilinogen Urine Norm (Negative); pH Urine 5 (5-7)
[2021-09-17 17:27] LABS: Basophils % 0.3 %; Eosinophils # 0.1 10^3/uL (0.0-0.8); Eosinophils % 0.7 %; Hemoglobin 9.5 g/dL (11.5-15.3); Lymphocytes # 2.1 10^3/uL (0.8-4.8); Lymphocytes % 16.4 %; Mean Corpuscular HGB Conc 30.6 g/dL (30.0-36.0); Mean Corpuscular Hemoglobin 24.5 pg (28.0-34.0); Mean Corpuscular Volume 79.9 fl (81-99); Mean Platelet Volume 10.3 fL (7.4-10.4); Monocytes # 0.8 10^3/uL (0.2-0.9); Monocytes % 6.5 %; Neutrophils # 9.41 10^3/uL (1.8-7.7); Neutrophils % 72.9 %; Nucleated Red Blood Cells % 0.2 %; Platelet Count 357 10^3/cmm (130-400); Red Blood Count 3.88 10^6/uL (4.1-5.3); Red Cell Distribution Width 15.6 % (12.1-15.1); White Blood Count 12.9 10^3/uL (4.0-10.0)
[2021-09-17 17:36] LABS: Alanine Aminotransferase 7 U/L (0-33); Albumin Level 3.1 g/dL (3.5-5.2); Alkaline Phosphatase 58 IU/L (35-105); Aspartate Amino Transferase 11 U/L (0-32); Blood Urea Nitrogen 7 mg/dL (6-20); Calcium 8.4 mg/dL (8.5-10.5); Carbon Dioxide 21 mmol/L (22-29); Chloride 103 mmol/L (98-107); Globulin 3.4 g/dL (1.3-4.6); Glomerular Filtration Rate 191.5 mL/min (90-130); Glucose 67 mg/dL (65-115); Osmolality Calculated 276 mOsm/kg (285-295); Sodium 135 mmol/L (136-145); Total Bilirubin 0.2 mg/dL (0.15-1.2); Total Protein 6.5 g/dL (6.6-8.7); Uric Acid 3.9 mg/dL (2.4-5.7)
[2021-09-17 17:40] LABS: Urine Creatinine 203 mg/dL (28-217)
[2021-09-17 17:41] LABS: UPRO/UCREAT Ratio 0.14 mg/mg CR; Urine Protein Random 29 mg/dL
== END 2021-09-17 19:27 | disposition home or self-care (01) ==
LOC: OPOB 15:47 → OBGYN 15:48
PROVIDERS: Obstetrics & Gynecology; PCP Family Medicine; Visit Provider Obstetrics & Gynecology
DX: O99.891 Other specified diseases and conditions complicating pregnancy (principal); R42 Dizziness and giddiness; R25.2 Cramp and spasm
CPT/HCPCS: 36415; 59025; 76815; 80053; 81003; 82570; 84156; 84550; 85025; 99211

== ENCOUNTER 2021-10-01 21:43 | Outpatient (CLI) | payer MEDICAID, SELFPAY ==
[2021-10-01 21:54] VITALS: RESP 16
[2021-10-01 22:00] VITALS: BP 117/66; PULSE 110
[2021-10-01 22:05] VITALS: BMI 52.4
[2021-10-01 22:50] LABS: Bilirubin Urine Neg (Negative); Blood Urine 2+ (Negative); Glucose Urine UA Trace (Normal); Ketones Urine 1+ (Negative); Leukocyte Esterase Urine Negative (Negative); Nitrate Urine Negative (Negative); Protein Urine Neg (Negative); Urine Appearance SL Hazy (CLEAR); Urine Color Yellow (Yellow); Urobilinogen Urine Norm (Negative); pH Urine 5 (5-7)
[2021-10-01 22:51] LABS: Add Urine Culture? No; Bacteria Urine 2+ /hpf; Squamous Epithelial Cell Urine 15-25 /hpf (0-5); WBC Urine 0-4 /hpf (0-5)
[2021-10-01 22:59] VITALS: BP 100/52; PULSE 95
[2021-10-01 23:16] VITALS: BP 100/52; PULSE 95; RESP 16
== END 2021-10-01 23:16 | disposition home or self-care (01) ==
LOC: OPOB 21:49 → OBGYN 21:50
PROVIDERS: PCP Family Medicine; Visit Provider Obstetrics & Gynecology
DX: O46.90 Antepartum hemorrhage, unspecified, unspecified trimester (principal); Z3A.00 Weeks of gestation of pregnancy not specified; R10.9 Unspecified abdominal pain
CPT/HCPCS: 59025; 81001; 87086; 99211

== ENCOUNTER → 2021-10-20 15:17 | Outpatient (BNVA) | payer OTHER, MEDICAID, SELFPAY | PROVIDERS: PCP Family Medicine; Visit Provider Obstetrics & Gynecology | DX: Z34.02 Encounter for supervision of normal first pregnancy, second trimester (principal) | CPT/HCPCS: 84315; 84443; 87491 ==

== ENCOUNTER 2021-10-26 13:22 | Outpatient (CLI) | payer OTHER, MEDICAID, SELFPAY ==
[2021-10-26 13:45] VITALS: BP 122/73; PULSE 112
[2021-10-26 13:52] VITALS: RESP 18
[2021-10-26 13:55] VITALS: BMI 54.1
[2021-10-26 14:00] VITALS: BP 112/72; PULSE 106
[2021-10-26 14:15] VITALS: BP 108/68; PULSE 113
[2021-10-26 14:23] LABS: Basophils % 0.2 %; Eosinophils # 0.1 10^3/uL (0.0-0.8); Eosinophils % 0.8 %; Hematocrit 39.6 % (37.0-47.0); Hemoglobin 11.8 g/dL (11.5-15.3); Lymphocytes # 1.6 10^3/uL (0.8-4.8); Lymphocytes % 19.1 %; Mean Corpuscular HGB Conc 29.8 g/dL (30.0-36.0); Mean Corpuscular Hemoglobin 25.3 pg (28.0-34.0); Mean Platelet Volume 10.8 fL (7.4-10.4); Monocytes # 0.5 10^3/uL (0.2-0.9); Monocytes % 6.3 %; Neutrophils # 6.22 10^3/uL (1.8-7.7); Neutrophils % 72.9 %; Nucleated Red Blood Cells % 0 %; Platelet Count 328 10^3/cmm (130-400); Red Blood Count 4.66 10^6/uL (4.1-5.3); Red Cell Distribution Width 21.7 % (12.1-15.1); White Blood Count 8.5 10^3/uL (4.0-10.0)
[2021-10-26 14:30] VITALS: BP 110/71; PULSE 97
[2021-10-26 14:45] VITALS: BP 100/59; PULSE 104
--- NOTE | 2021-10-26 15:47 | PM.ACPR ---
Procedure/Consent Procedure Narrative: NONSTRESS TEST: Place of test: [facility] [place], [place]-L[facility]D Indication: 26-year-old 1 para 0 at 34 weeks and 4 days today, gestational diabetes on insulin, morbid obesity Date and time of test: 10/26/2021 Baseline: 145 Variability: Moderate variability Accelerations: Accelerations present Decelerations: No decelerations Tocometry: No contractions INTERPRETATION: NST reactive, continue kick counts Technically difficult because of patient's morbid obesity and active movement
== END 2021-10-26 15:02 | disposition home or self-care (01) ==
LOC: OPOB 13:27 → OBGYN 13:31
PROVIDERS: PCP Family Medicine; Visit Provider Obstetrics & Gynecology
DX: O24.419 Gestational diabetes mellitus in pregnancy, unspecified control (principal); Z3A.00 Weeks of gestation of pregnancy not specified
CPT/HCPCS: 36415; 59025; 84315; 85025; 99211

== ENCOUNTER → 2021-11-01 15:04 | Outpatient (CLI) | payer OTHER, MEDICAID, SELFPAY ==
[2021-11-01 15:04] VITALS: BMI 54.3
[2021-11-01 15:15] VITALS: RESP 18
[2021-11-01 15:20] VITALS: BP 107/68; PULSE 108
[2021-11-01 15:34] VITALS: BP 102/61; PULSE 96
[2021-11-01 15:49] VITALS: BP 98/58; PULSE 100
== END | disposition home or self-care (01) ==
LOC: OPOB 15:07 → OBGYN 15:07
PROVIDERS: PCP Family Medicine; Visit Provider Obstetrics & Gynecology
DX: O36.8190 Decreased fetal movements, unspecified trimester, not applicable or unspecified (principal); Z3A.00 Weeks of gestation of pregnancy not specified
CPT/HCPCS: 59025; 99211

== ENCOUNTER → 2021-11-03 14:47 | Outpatient (BNVA) | payer OTHER, MEDICAID, SELFPAY | PROVIDERS: PCP Family Medicine; Visit Provider Obstetrics & Gynecology | DX: O24.419 Gestational diabetes mellitus in pregnancy, unspecified control (principal); O40.9XX0 Polyhydramnios, unspecified trimester, not applicable or unspecified; Z3A.00 Weeks of gestation of pregnancy not specified | CPT/HCPCS: 84315; 87081 ==

== ENCOUNTER 2021-12-24 18:29 | Emergency (ER) | payer MEDICAID, SELFPAY ==
[2021-12-24 18:34] VITALS: BP 144/91; PULSE 93; RESP 18; TEMP 36.8; O2SAT 98; BMI 50.1
[2021-12-24 18:37] VITALS: RESP 16; O2SAT 98
--- NOTE | 2021-12-24 18:37 | ECG_ITS ---
[facility] Test Date: 2021-12-24 Pat Name: Ltitle Grier Department: Room: Gender: Female Social Work Specialist: : 1995 Requested By: Suzy Fernandez Order Number: [id number] Nima MD: José Miguel Fall M.D. Measurements Intervals [place] Rate: 89 P: 42 DE: 150 QRS: 36 QRSD: 93 T: 44 QT: 371 QTc: 452 Interpretive Statements SINUS RHYTHM Compared to ECG 07/21/2021 16:35:52 No significant changes Electronically Signed On 12-24-2021 22:46:57 CDT by José Miguel Fall M.D. [id number]
--- NOTE | 2021-12-24 18:37 | XRR_ITS ---
PROCEDURE INFORMATION: Exam: XR Chest Exam date and time: 12/24/2021 5:59 PM Age: 26 years old Clinical indication: Pain; Angina pectoris; Additional info: Chest pain TECHNIQUE: Imaging protocol: XR of the chest. Views: 1 view. COMPARISON: CR XR chest 1V portable [id number] 07/21/2021 12:47 PM FINDINGS: Lungs: Unremarkable. No consolidation. Pleural spaces: Unremarkable. No pleural effusion. No pneumothorax. Heart/Mediastinum: Cardiomegaly. Bones/joints: Unremarkable. XR/XR chest 1V portable [id number] IMPRESSION: Cardiomegaly, lungs are clear.
--- NOTE | 2021-12-24 18:39 | W.ED.GENADLT ---
Documented by User: Suzy Fernandez MD 12/24/21 22:53 HPI - General Adult General: Chief complaint: Abdominal Pain Stated complaint: general medical Time Seen by Provider: 12/24/21 18:33 History of Present Illness: Patient is a 26-year-old female with no significant past medical history presents emergency room with complaints of midepigastriec and LUQ abdominal pain w/ 1 episode of emesis in the setting of chills and weakness since 4 AM this morning. Patient tells me that since this morning, she has not felt well and has had decreased PO intake. Patient denies any associated chest pain, dyspnea, palpitation, diarrhea, melena hematochezia. In addition, patient has been having ongoing intermittent chest pain for this whole week. Denies chest pain is exertional, pleuritic, worse with inspiration. Patient denies any active cough. Denies any rash, urinary symptoms clued hematuria, polyuria, or dysuria. Patient has no prior abdominal surgery, no other focal complaints at this time Onset:1 week of chest pain, 1 day of N/V, abd pain Duration:ongoing Location:home Severity:moderate Associated symptoms: Reports chest pain, nausea and vomiting; Deny dyspnea, rash or palpitations Review of Systems Const: Reports: fatigue; Denies: fever(s) or chills Eyes: Denies: change in vision ENMT: Denies: mouth pain Card: Reports: chest pain; Denies: palpitations Resp: Denies: dyspnea or non-productive cough GI: Reports: abdominal pain, nausea and vomiting; Denies: diarrhea : Denies: dysuria Musc: Denies: extremity pain Skin/Breast: Denies: rash or new lesions Neuro: Denies: weakness in extremities Psych: Reports: other (Normal mood) Corey/Lymph: Denies: easy bruising PFSH ED PFSH: Medical History Anxiety and depression Diagnosed in 2018. She did do therapy in the past but not currently. Was on medication prior to the -Cymbalta, clonazepam and citalopram managed by her primary care provider. She stopped when she found out she was in 2020 GERD (gastroesophageal reflux disease) Morbid obesity with BMI of 50.0-59.9, adult No pertinent past medical history Denies diabetes, asthma, hypertension, seizures, DVT/PE PCP: Dr. Tyler Surgical History History of incision and drainage (~12/2020) for rectal abscess performed by Dr. Mao at [facility] Family History Family/Other Diabetes Maternal Uncle Mother Hypertension Thyroid disease Denies family history of Colon cancer Ovarian cancer Heart disease Hypercholesteremia Breast cancer Uterine cancer Stroke Social History Smoking and tobacco status: never smoked Female Reproductive History: Date of last menstrual period: 12/14/20 Physical Exam Const: COMMON NORMALS: alert HENMT: COMMON NORMALS: atraumatic HEAD & SCALP: atraumatic MOUTH: moist mucous membranes not abnormal Eye: COMMON NORMALS: EOMs intact bilaterally and conjunctivae normal CONJUNCTIVA: Yes conjunctivae normal Neck/C-Spine: COMMON NORMALS: full ROM and supple Resp: COMMON NORMALS: normal respiratory effort and clear to auscultation bilaterally AUSCULTATION: clear to auscultation bilaterally Cardio: COMMON NORMALS: regular rate RATE: regular rate OTHER: 2+ radial pulses b/l GI: COMMON NORMALS: Soft to palpation PALPATION: Yes Soft to palpation OTHER: +mild LUQ tenderness to palpation. NO guarding rebound, guarding, rigidity. No CVA tenderness to percussion. Neg Tompkins/Neg McBurney's point tenderness, no suprabupic tenderness to palpation. Extremity: COMMON NORMALS: full ROM Neuro: SENSORIUM/ORIENTATION: Yes alert MOTOR EXAM: No Abnormal motor strength present and Other motor observations present (no focal motor deficits) Psych: COMMON NORMALS: speech normal SPEECH: Yes normal speech MOOD & AFFECT: Yes euthymic mood Course Vital Signs: Vital signs: Vital Signs Temperature 98.2 F 12/24/21 18:34 Pulse Rate 93 12/24/21 18:34 Respiratory Rate 16 12/24/21 18:37 Blood Pressure 144/91 12/24/21 18:34 Pulse Oximetry 98 12/24/21 18:37 MDM - General Adult Medical Decision Making 26-year-old female presenting to the emergency room with complaints of epigastric, left upper quadrant dull pain with nausea and vomiting since 4 AM this morning. Exam, patient has mild left upper quadrant tenderness to palpation. Patient is afebrile, without any guarding rebound tenderness. Patient is not jaundiced. Lab work-up showed mildly elevated AST and ALT and T bili. Ultrasound do not show any elevation of the CBD. The gallbladder does appear to be enlarged. However there is no findings of gallbladder stone or pericholecystic changes. I have discussed these findings with the patient and instructed her to follow-up with GI for further evaluation. The patient has cardiomegaly, I doubt that this is ACS this patient has a heart score less than 3, EKG is nonischemic, and troponin within normal limit. I have given patient follow up with our continuous pillowcase cutter to be seen by our outpatient GI for close follow up of elevated lver enzymes. Patient aware of a call from our continuous pillowcase cutter to schedule for appointment(s) and verbalizes understanding of the importance of following up. In addition, patient was noted to have cardiomegaly on x-ray. Given the fact the patient is only 26, have given patient close follow-up with cardiology for further evaluation of the findings I have given patient follow up with our continuous pillowcase cutter to be seen by our outpatient Cardiology for cardiomegaly. Patient aware of a call from our continuous pillowcase cutter to schedule for appointment(s) and verbalizes understanding of the importance of following up. Rx tylenol PRN abd pain, maalox/pepcid PRN dyspepsia, and zofran PRN nausea/vomiting Disposition: Discharge. Patient counseled regarding diagnostic impression, treatment plan. Patient given ED strict return precautions to return for continuation, worsening, or development of new symptoms. Instructed to f/u w/ PCP regarding symptoms today. Patient verbalized understanding. Lab Data : 12/24/21 20:00 12/24/21 20:00 Radiology Impressions Chest X-Ray 12/24/21 18:37 IMPRESSION: Cardiomegaly, lungs are clear. Laboratory Results WBC 5.2 10^3/uL (4.0-10.0) 12/24/21 20:00 RBC 4.87 10^6/uL (4.1-5.3) 12/24/21 20:00 Hgb 13.2 g/dL (11.5-15.3) 12/24/21 20:00 Hct 41.8 % (37.0-47.0) 12/24/21 20:00 MCV 85.8 fl (81-99) 12/24/21 20:00 MCH 27.1 pg (28.0-34.0) L 12/24/21 20:00 MCHC 31.6 g/dL (30.0-36.0) 12/24/21 20:00 RDW 14.9 % (12.1-15.1) 12/24/21 20:00 Plt Count 282 10^3/cmm (130-400) 12/24/21 20:00 MPV 10.5 fL (7.4-10.4) H 12/24/21 20:00 Neut % (Auto) 66.5 % 12/24/21 20:00 Lymph % (Auto) 25.8 % 12/24/21 20:00 [place] % (Auto) 5.2 % 12/24/21 20:00 Eos % (Auto) 1.5 % 12/24/21 20:00 Baso % (Auto) 0.6 % 12/24/21 20:00 Neut # (Auto) 3.45 10^3/uL (1.8-7.7) 12/24/21 20:00 Lymph # (Auto) 1.3 10^3/uL (0.8-4.8) 12/24/21 20:00 [place] # (Auto) 0.3 10^3/uL (0.2-0.9) 12/24/21 20:00 Eos # (Auto) 0.1 10^3/uL (0.0-0.8) 12/24/21 20:00 Baso # (Auto) 0.0 10^3/uL (0.0-0.1) 12/24/21 20:00 Nucleated RBC % (auto) 0 % 12/24/21 20:00 Nucleated RBCs # 0.0 /100WBC 12/24/21 20:00 Sodium 138 mmol/L (136-145) 12/24/21 20:00 Potassium 4.1 mmol/L (3.5-5.1) 12/24/21 20:00 Chloride 100 mmol/L (98-107) 12/24/21 20:00 Carbon Dioxide 24 mmol/L (22-29) 12/24/21 20:00 Anion Gap 18.1 (5-19) 12/24/21 20:00 BUN 11 mg/dL (6-20) 12/24/21 20:00 Creatinine 0.6 mg/dL (0.5-0.9) 12/24/21 20:00 GFR Calculation 119.9 mL/min (90-130) 12/24/21 20:00 Glucose 96 mg/dL (65-115) 12/24/21 20:00 Calculated Osmolality 285 mOsm/kg (285-295) 12/24/21 20:00 Calcium 9.5 mg/dL (8.5-10.5) 12/24/21 20:00 Total Bilirubin 2.2 mg/dL (0.15-1.2) H 12/24/21 20:00 AST 416 U/L (0-32) H 12/24/21 20:00 ALT 374 U/L (0-33) H 12/24/21 20:00 Alkaline Phosphatase 120 IU/L (35-105) H 12/24/21 20:00 Troponin T Gen 5 ng/L 6 ng/L (0-10) 12/24/21 20:00 Total Protein 7.8 g/dL (6.6-8.7) 12/24/21 20:00 Albumin 4.5 g/dL (3.5-5.2) 12/24/21 20:00 Globulin 3.3 g/dL (1.3-4.6) 12/24/21 20:00 Lipase 37 U/L (13-60) 12/24/21 20:00 Urine Color Yellow (Yellow) 12/24/21 23:07 Urine Appearance Sl cloudy (CLEAR) A 12/24/21 23:07 Urine pH 5 (5-7) 12/24/21 23:07 Ur Specific [place] 1.020 (1.005-1.030) 12/24/21 23:07 Urine Protein Trace (Negative) 12/24/21 23: Urine Glucose (UA) Norm (Normal) 12/24/21 23: Urine Ketones Negative (Negative) 12/24/21 23: Urine Blood Neg (Negative) 12/24/21 23: Urine Nitrate Negative (Negative) 12/24/21 23: Urine Bilirubin 1+ (Negative) H 12/24/21 23:07 Urine Urobilinogen 1 mg/dL (Negative) H 12/24/21 23:07 Ur Leukocyte Esterase Trace (Negative) H 12/24/21 23:07 Urine RBC 0-4 /hpf (0-2) H 12/24/21 23:07 Urine WBC 5-10 /hpf (0-5) H 12/24/21 23:07 Ur Squamous Epith Cells 15-25 /hpf (0-5) H 12/24/21 23:07 Amorphous Sediment Not Reportable 12/24/21 23:07 Urine Bacteria 2+ /hpf (NONE) H 12/24/21 23:07 Imaging Data Other Imaging: Radiologist's impression: [address] [address] XRay Report Signed Patient: [place] Unit #: [id number] : 1995 Age/Sex: 26 / F ADM Date: 12/24/21 Loc: ER Room/Bed: Attending Dr: Ordering Provider/Ordering MD: Suzy Fernandez MD Date of Service: 12/24/21 Procedure(s): XR chest 1V portable [id number] Accession Number(s): [id number] Report Number: [id number] PROCEDURE INFORMATION: Exam: XR Chest Exam date and time: 12/24/2021 5:59 PM Age: 26 years old Clinical indication: Pain; Angina pectoris; Additional info: Chest pain TECHNIQUE: Imaging protocol: XR of the chest. Views: 1 view. COMPARISON: CR XR chest 1V portable [id number] 07/21/2021 12:47 PM FINDINGS: Lungs: Unremarkable. No consolidation. Pleural spaces: Unremarkable. No pleural effusion. No pneumothorax. Heart/Mediastinum: Cardiomegaly. Bones/joints: Unremarkable. XR/XR chest 1V portable [id number] IMPRESSION: Cardiomegaly, lungs are clear. ? Dictated By: Vinayak Lackey MD Signed By: Vinayak Lackey MD Signed Date/Time: 12/24/212030 DD/ 58 Discharge Plan Discharge Patient Disposition: Home Clinical Impression: Chill, Abdominal pain, Nausea and vomiting Condition: Stable Prescriptions: New Zofran 4 mg tablet 4 mg PO TID PRN (Reason: nausea and vomiting) 4 Days Qty: 12 0RF acetaminophen 500 mg tablet 500 mg PO Q6H PRN (Reason: pain) 5 Days Qty: 20 0RF Pepcid 20 mg tablet 20 mg PO BID PRN (Reason: abdominal pain) 10 Days Qty: 20 0RF Maalox Advanced 1,000-60 mg tablet,chewable 1 tab PO TID PRN (Reason: abdominal pain) 7 Days Qty: 21 0RF No Action prenat.vits,eleonora,bem-quno-hqfnk Tablet 1 tab PO DAILY 0RF ascorbate calcium (vitamin C) 500 mg tablet 500 mg PO DAILY 0RF pantoprazole 40 mg tablet,delayed release (DR/EC) 40 mg PO DAILY Qty: 30 1RF ondansetron HCl [Zofran] 4 mg tablet 4 mg PO Q8H PRN (Reason: nausea and vomiting) Qty: 14 0RF Iron (ferrous sulfate) 325 mg (65 mg iron) Tablet 325 mg PO BID 0RF acetaminophen 500 mg Tablet 500 mg PO Q6H PRN (Reason: Pain) 0RF Discharge Orders: Discharge ED (Routine); Ordered 12/24/21 Ordered By: Tanvir Blake Referrals: Natasha Tyler MD [Primary Care Provider] - Discharge Diet: Advance as tolerated Discharge Activity: Increase activity as tolerated Patient Instructions: Abdominal Pain (ED) Activity Restrictions/Additional Instructions: Please come back if you have any worsening abdominal pain, fever or chills, nausea or vomiting, diarrhea, blood in the stool, inability hold down liquid or solids, or any new concerning complaints. Our continuous pillowcase cutter will have you follow-up with a Grass Farm Laborer and a grinder operator surface tool in the next few days. You would be expected to have a phone call with our continuous pillowcase cutter who will put you on the schedule. You can expect a call from us in the next 2-3 days. If you don't hear from us, call us back in the emergency room at [phone]. Stand Alone Forms: Work/School Release Coding Level of Care Code ED Spice Fumigator for Chg Fwd Exam Comprehensive Documented by User: Tanvir Blake MD 12/24/21 23:56 HPI - General Adult General: Chief complaint: Abdominal Pain Stated complaint: general medical Time Seen by Provider: 12/24/21 18:33 PENDING SALE TO [facility] ED PFSH: Medical History Anxiety and depression Diagnosed in 2018. She did do therapy in the past but not currently. Was on medication prior to the -Cymbalta, clonazepam and citalopram managed by her primary care provider. She stopped when she found out she was in 2020 GERD (gastroesophageal reflux disease) Morbid obesity with BMI of 50.0-59.9, adult No pertinent past medical history Denies diabetes, asthma, hypertension, seizures, DVT/PE PCP: Dr. Tyler Surgical History History of incision and drainage (~12/2020) for rectal abscess performed by Dr. Mao at [facility] Family History Family/Other Diabetes Maternal Uncle Mother Hypertension Thyroid disease Denies family history of Colon cancer Ovarian cancer Heart disease Hypercholesteremia Breast cancer Uterine cancer Stroke Social History Smoking and tobacco status: never smoked Course Vital Signs: Vital signs: Vital Signs Temperature 98.2 F 12/24/21 18:34 Pulse Rate 93 12/24/21 18:34 Respiratory Rate 16 12/24/21 18:37 Blood Pressure 144/91 12/24/21 18:34 Pulse Oximetry 98 12/24/21 18:37 MDM - General Adult Medical Decision Making 26-year-old female presenting to the emergency room with complaints of epigastric, left upper quadrant dull pain with nausea and vomiting since 4 AM this morning. Exam, patient has mild left upper quadrant tenderness to palpation. Patient is afebrile, without any guarding rebound tenderness. Patient is not jaundiced. Lab work-up showed mildly elevated AST and ALT and T bili. Ultrasound do not show any elevation of the CBD. The gallbladder does appear to be enlarged. However there is no findings of gallbladder stone or pericholecystic changes. I have discussed these findings with the patient and instructed her to follow-up with GI for further evaluation. The patient has cardiomegaly, I doubt that this is ACS this patient has a heart score less than 3, EKG is nonischemic, and troponin within normal limit. I have given patient follow up with our continuous pillowcase cutter to be seen by our outpatient GI for close follow up of elevated lver enzymes. Patient aware of a call from our continuous pillowcase cutter to schedule for appointment(s) and verbalizes understanding of the importance of following up. In addition, patient was noted to have cardiomegaly on x-ray. Given the fact the patient is only 26, have given patient close follow-up with cardiology for further evaluation of the findings I have given patient follow up with our continuous pillowcase cutter to be seen by our outpatient Cardiology for cardiomegaly. Patient aware of a call from our continuous pillowcase cutter to schedule for appointment(s) and verbalizes understanding of the importance of following up. Rx tylenol PRN abd pain, maalox/pepcid PRN dyspepsia, and zofran PRN nausea/vomiting Disposition: Discharge. Patient counseled regarding diagnostic impression, treatment plan. Patient given ED strict return precautions to return for continuation, worsening, or development of new symptoms. Instructed to f/u w/ PCP regarding symptoms today. Patient verbalized understanding. Took patient over from Dr. Fernandez patient's pain here has improved she is stable for discharge is to follow-up with surgery and return if worsening. Lab Data : 12/24/21 20:00 12/24/21 20:00 Radiology Impressions Chest X-Ray 12/24/21 18:37 IMPRESSION: Cardiomegaly, lungs are clear. Laboratory Results WBC 5.2 10^3/uL (4.0-10.0) 12/24/21 20:00 RBC 4.87 10^6/uL (4.1-5.3) 12/24/21 20:00 Hgb 13.2 g/dL (11.5-15.3) 12/24/21 20:00 Hct 41.8 % (37.0-47.0) 12/24/21 20:00 MCV 85.8 fl (81-99) 12/24/21 20:00 MCH 27.1 pg (28.0-34.0) L 12/24/21 20:00 MCHC 31.6 g/dL (30.0-36.0) 12/24/21 20:00 RDW 14.9 % (12.1-15.1) 12/24/21 20:00 Plt Count 282 10^3/cmm (130-400) 12/24/21 20:00 MPV 10.5 fL (7.4-10.4) H 12/24/21 20:00 Neut % (Auto) 66.5 % 12/24/21 20:00 Lymph % (Auto) 25.8 % 12/24/21 20:00 [place] % (Auto) 5.2 % 12/24/21 20:00 Eos % (Auto) 1.5 % 12/24/21 20:00 Baso % (Auto) 0.6 % 12/24/21 20:00 Neut # (Auto) 3.45 10^3/uL (1.8-7.7) 12/24/21 20:00 Lymph # (Auto) 1.3 10^3/uL (0.8-4.8) 12/24/21 20:00 [place] # (Auto) 0.3 10^3/uL (0.2-0.9) 12/24/21 20:00 Eos # (Auto) 0.1 10^3/uL (0.0-0.8) 12/24/21 20:00 Baso # (Auto) 0.0 10^3/uL (0.0-0.1) 12/24/21 20:00 Nucleated RBC % (auto) 0 % 12/24/21 20:00 Nucleated RBCs # 0.0 /100WBC 12/24/21 20:00 Sodium 138 mmol/L (136-145) 12/24/21 20:00 Potassium 4.1 mmol/L (3.5-5.1) 12/24/21 20:00 Chloride 100 mmol/L (98-107) 12/24/21 20:00 Carbon Dioxide 24 mmol/L (22-29) 12/24/21 20:00 Anion Gap 18.1 (5-19) 12/24/21 20:00 BUN 11 mg/dL (6-20) 12/24/21 20:00 Creatinine 0.6 mg/dL (0.5-0.9) 12/24/21 20:00 GFR Calculation 119.9 mL/min (90-130) 12/24/21 20:00 Glucose 96 mg/dL (65-115) 12/24/21 20:00 Calculated Osmolality 285 mOsm/kg (285-295) 12/24/21 20:00 Calcium 9.5 mg/dL (8.5-10.5) 12/24/21 20:00 Total Bilirubin 2.2 mg/dL (0.15-1.2) H 12/24/21 20:00 AST 416 U/L (0-32) H 12/24/21 20:00 ALT 374 U/L (0-33) H 12/24/21 20:00 Alkaline Phosphatase 120 IU/L (35-105) H 12/24/21 20:00 Troponin T Gen 5 ng/L 6 ng/L (0-10) 12/24/21 20:00 Total Protein 7.8 g/dL (6.6-8.7) 12/24/21 20:00 Albumin 4.5 g/dL (3.5-5.2) 12/24/21 20:00 Globulin 3.3 g/dL (1.3-4.6) 12/24/21 20:00 Lipase 37 U/L (13-60) 12/24/21 20:00 Urine Color Yellow (Yellow) 12/24/21 23:07 Urine Appearance Sl cloudy (CLEAR) A 12/24/21 23:07 Urine pH 5 (5-7) 12/24/21 23:07 Ur Specific [place] 1.020 (1.005-1.030) 12/24/21 23: Urine Protein Trace (Negative) 12/24/21 23:07 Urine Glucose (UA) Norm (Normal) 12/24/21 23: Urine Ketones Negative (Negative) 12/24/21 23: Urine Blood Neg (Negative) 12/24/21 23: Urine Nitrate Negative (Negative) 12/24/21 23: Urine Bilirubin 1+ (Negative) H 12/24/21 23:07 Urine Urobilinogen 1 mg/dL (Negative) H 12/24/21 23:07 Ur Leukocyte Esterase Trace (Negative) H 03/18/22 23:07 Urine RBC 0-4 /hpf (0-2) H 12/24/21 23:07 Urine WBC 5-10 /hpf (0-5) H 12/24/21 23:07 Ur Squamous Epith Cells 15-25 /hpf (0-5) H 12/24/21 23:07 Amorphous Sediment Not Reportable 12/24/21 23:07 Urine Bacteria 2+ /hpf (NONE) H 12/24/21 23:07 Discharge Plan Discharge Patient Disposition: Home Clinical Impression: Chill, Abdominal pain, Nausea and vomiting Condition: Stable Prescriptions: New Zofran 4 mg tablet 4 mg PO TID PRN (Reason: nausea and vomiting) 4 Days Qty: 12 0RF acetaminophen 500 mg tablet 500 mg PO Q6H PRN (Reason: pain) 5 Days Qty: 20 0RF Pepcid 20 mg tablet 20 mg PO BID PRN (Reason: abdominal pain) 10 Days Qty: 20 0RF Maalox Advanced 1,000-60 mg tablet,chewable 1 tab PO TID PRN (Reason: abdominal pain) 7 Days Qty: 21 0RF No Action prenat.vits,eleonora,sim-vbyr-gigig Tablet 1 tab PO DAILY 0RF ascorbate calcium (vitamin C) 500 mg tablet 500 mg PO DAILY 0RF pantoprazole 40 mg tablet,delayed release (DR/EC) 40 mg PO DAILY Qty: 30 1RF ondansetron HCl [Zofran] 4 mg tablet 4 mg PO Q8H PRN (Reason: nausea and vomiting) Qty: 14 0RF Iron (ferrous sulfate) 325 mg (65 mg iron) Tablet 325 mg PO BID 0RF acetaminophen 500 mg Tablet 500 mg PO Q6H PRN (Reason: Pain) 0RF Discharge Orders: Discharge ED (Routine); Ordered 12/24/21 Ordered By: Tanvir Blake Referrals: Natasha Tyler MD [Primary Care Provider] - Discharge Diet: Advance as tolerated Discharge Activity: Increase activity as tolerated Patient Instructions: Abdominal Pain (ED) Activity Restrictions/Additional Instructions: Please come back if you have any worsening abdominal pain, fever or chills, nausea or vomiting, diarrhea, blood in the stool, inability hold down liquid or solids, or any new concerning complaints. Our continuous pillowcase cutter will have you follow-up with a Grass Farm Laborer and a grinder operator surface tool in the next few days. You would be expected to have a phone call with our continuous pillowcase cutter who will put you on the schedule. You can expect a call from us in the next 2-3 days. If you don't hear from us, call us back in the emergency room at [phone]. Stand Alone Forms: Work/School Release Coding Level of Care Code ED Spice Fumigator for Allison Fwd Exam Comprehensive
[2021-12-24 20:08] LABS: Basophils % 0.6 %; Eosinophils # 0.1 10^3/uL (0.0-0.8); Eosinophils % 1.5 %; Hematocrit 41.8 % (37.0-47.0); Hemoglobin 13.2 g/dL (11.5-15.3); Lymphocytes # 1.3 10^3/uL (0.8-4.8); Lymphocytes % 25.8 %; Mean Corpuscular HGB Conc 31.6 g/dL (30.0-36.0); Mean Corpuscular Hemoglobin 27.1 pg (28.0-34.0); Mean Corpuscular Volume 85.8 fl (81-99); Mean Platelet Volume 10.5 fL (7.4-10.4); Monocytes # 0.3 10^3/uL (0.2-0.9); Monocytes % 5.2 %; Neutrophils # 3.45 10^3/uL (1.8-7.7); Neutrophils % 66.5 %; Nucleated Red Blood Cells % 0 %; Platelet Count 282 10^3/cmm (130-400); Red Blood Count 4.87 10^6/uL (4.1-5.3); Red Cell Distribution Width 14.9 % (12.1-15.1); White Blood Count 5.2 10^3/uL (4.0-10.0)
[2021-12-24 20:38] LABS: Alanine Aminotransferase 374 U/L (0-33); Albumin Level 4.5 g/dL (3.5-5.2); Alkaline Phosphatase 120 IU/L (35-105); Anion Gap 18.1 (5-19); Aspartate Amino Transferase 416 U/L (0-32); Blood Urea Nitrogen 11 mg/dL (6-20); Calcium 9.5 mg/dL (8.5-10.5); Carbon Dioxide 24 mmol/L (22-29); Chloride 100 mmol/L (98-107); Globulin 3.3 g/dL (1.3-4.6); Glomerular Filtration Rate 119.9 mL/min (90-130); Glucose 96 mg/dL (65-115); Lipase 37 U/L (13-60); Osmolality Calculated 285 mOsm/kg (285-295); Potassium 4.1 mmol/L (3.5-5.1); Sodium 138 mmol/L (136-145); Total Bilirubin 2.2 mg/dL (0.15-1.2); Total Protein 7.8 g/dL (6.6-8.7)
--- NOTE | 2021-12-24 20:54 | USR_ITS ---
PROCEDURE INFORMATION: Exam: US Abdomen, Limited; Right Upper Quadrant Exam date and time: 12/24/2021 10:34 PM Age: 26 years old Clinical indication: Abnormal findings; Abnormal lab test; Elevated lipase; Additional info: Eval for cbd dilatation TECHNIQUE: Imaging protocol: US abdomen. Real time ultrasound with image documentation. Limited exam focused on the right upper quadrant. COMPARISON: CT chest abd pel w con* 02/25/2020 4:06 PM FINDINGS: Liver: The liver is normal in size, measuring 14.5 cm in length. It shows a hyperechoic echotexture consistent with hepatic steatosis.. Gallbladder: There are no shadowing gallstones. The gallbladder wall thickness is 1 mm, normal. There is no pericholecystic fluid. The washerette machine operator reports a negative Tompkins's sign. Common bile duct: The common bile duct measures the in 4 mm in diameter, normal. Pancreas: The pancreas is mildly hypoechoic/edematous. There is minimal peripancreatic fluid on the head of the pancreas. There is no pancreatic duct dilatation. Right kidney: The right kidney measures 11.6 x 5 x 5.4 cm. There is no hydronephrosis or shadowing calculi. US/US gall bladder [id number] IMPRESSION: 1. Normal common bile duct. 2. No evidence of cholelithiasis or acute cholecystitis. 3. Mildly edematous pancreas with minimal peripancreatic fluid that in the presence of an elevated lipase level, may reflect early acute pancreatitis. Clinical correlation is necessary. 4. Hepatic steatosis without hepatomegaly.
[2021-12-24 21:17] LABS: Troponin T (5th) Once 6 ng/L (0-10)
--- NOTE | 2021-12-24 23:22 | PC.NURSE ---
pt holding and tending to child who is also a patient
[2021-12-24 23:42] LABS: Add Urine Microscopic? YES; Bilirubin Urine 1+ (Negative); Blood Urine Neg (Negative); Glucose Urine UA Norm (Normal); Ketones Urine Negative (Negative); Leukocyte Esterase Urine Trace (Negative); Nitrate Urine Negative (Negative); Protein Urine Trace (Negative); Urine Color Yellow (Yellow); Urobilinogen Urine 1 mg/dL (Negative); pH Urine 5 (5-7)
[2021-12-24 23:43] LABS: Add Urine Culture? No; Bacteria Urine 2+ /hpf; RBC Urine 0-4 /hpf (0-2); Squamous Epithelial Cell Urine 15-25 /hpf (0-5)
[2021-12-24 23:51] VITALS: BP 148/84; PULSE 70; RESP 20; O2SAT 98
--- NOTE | 2021-12-27 12:12 | DCPLANNER ---
Addendum entered by Yael Wang 03/04/22 18:39: Patient had a follow up appointment scheduled for 02.14.22 with [facility] - patient did attend appointment. Addendum entered by Yael Wang 01/14/22 09:04: Patient had an appointment scheduled with general surgery - patient did attend appointment. Addendum entered by Yael Wang 12/29/21 09:12: Patient has a follow up appointment scheduled for Wednesday January 05, 2022 at 10:[address] Mao at [facility] General Surgery / ENT. Clinic will call patient with appointment information. Original Note: manager of distribution had message to schedule a follow up appointment for patient with general surgery. manager of distribution emailed patients information to both Cathy and Altagracia at [facility] General Surgery / ENT clinic. Patients information will be printed and reviewed. Clinic will call patient with appointment information.
--- NOTE | 2021-12-27 15:28 | DCPLANNER ---
provider network manager had message to schedule a follow up appointment for patient with [facility]. provider network manager called [facility], spoke with Coty Barber, gave clinic patients information. A follow up appointment was scheduled for Monday, February 14, 2022 at 9:[address] Malin. provider network manager called patient and gave patient the appointment information.
== END 2021-12-24 23:51 | disposition home or self-care (01) ==
PROVIDERS: Emergency Medicine; Emergency Provider Emergency Medicine; PCP Family Medicine
DX: R10.9 Unspecified abdominal pain (principal); R11.2 Nausea with vomiting, unspecified; R68.83 Chills (without fever)
CPT/HCPCS: 71045; 76705; 80053; 81001; 83690; 84484; 85025; 93005; 99283

== ENCOUNTER 2022-01-05 07:10 | Outpatient (CLI) | payer MEDICAID, SELFPAY ==
[2022-01-05 07:46] LABS: Basophils % 0.4 %; Eosinophils # 0.2 10^3/uL (0.0-0.8); Eosinophils % 2.4 %; Hematocrit 42.7 % (37.0-47.0); Hemoglobin 13.5 g/dL (11.5-15.3); Lymphocytes # 2.3 10^3/uL (0.8-4.8); Lymphocytes % 34.9 %; Mean Corpuscular HGB Conc 31.6 g/dL (30.0-36.0); Mean Corpuscular Hemoglobin 27.4 pg (28.0-34.0); Mean Corpuscular Volume 86.6 fl (81-99); Mean Platelet Volume 10.5 fL (7.4-10.4); Monocytes # 0.4 10^3/uL (0.2-0.9); Monocytes % 5.2 %; Neutrophils # 3.79 10^3/uL (1.8-7.7); Nucleated Red Blood Cells % 0 %; Platelet Count 261 10^3/cmm (130-400); Red Blood Count 4.93 10^6/uL (4.1-5.3); Red Cell Distribution Width 14.3 % (12.1-15.1); White Blood Count 6.7 10^3/uL (4.0-10.0)
[2022-01-05 08:07] LABS: Alanine Aminotransferase 45 U/L (0-33); Albumin Level 4.4 g/dL (3.5-5.2); Alkaline Phosphatase 77 IU/L (35-105); Anion Gap 17.2 (5-19); Aspartate Amino Transferase 26 U/L (0-32); Blood Urea Nitrogen 20 mg/dL (6-20); Calcium 9.6 mg/dL (8.5-10.5); Carbon Dioxide 23 mmol/L (22-29); Chloride 103 mmol/L (98-107); Globulin 3.1 g/dL (1.3-4.6); Glomerular Filtration Rate 100.4 mL/min (90-130); Glucose 92 mg/dL (65-115); Osmolality Calculated 290 mOsm/kg (285-295); Potassium 4.2 mmol/L (3.5-5.1); Sodium 139 mmol/L (136-145); Total Bilirubin 0.4 mg/dL (0.15-1.2); Total Protein 7.5 g/dL (6.6-8.7)
[2022-01-05 09:37] LABS: Glucose 1 Hour 117 mg/dL
[2022-01-05 11:04] LABS: Glucose 2 Hour 90 mg/dL
[2022-01-07 15:22] LABS: Glucose Fasting 92 mg/dL (74-109)
== END 2022-01-05 07:11 | disposition home or self-care (01) ==
LOC: LAB 07:12
PROVIDERS: PCP Family Medicine; Visit Provider Nurse Practitioner Women's Health
DX: Z39.2 Encounter for routine postpartum follow-up (principal)
CPT/HCPCS: 36415; 80053; 82951; 85025

== ENCOUNTER 2022-01-26 07:41 | Outpatient (CLI) | payer MEDICAID, SELFPAY ==
--- NOTE | 2022-01-26 08:00 | NM_ITS ---
WS: [id number] NUCLEAR MEDICINE HIDA SCAN CLINICAL INFORMATION: R10.9 - Unspecified abdominal pain TECHNIQUE: Following intravenous administration of 7.7 mCi of technetium 99m mebrofenin, images of th e abdomen were obtained over the course of 60 minutes. Next, gallbladder ejection fraction was determ ined by obtaining preprandial and one-hour postprandial images of the gallbladder following oral lorelei stion of Ensure. COMPARISON: Ultrasound December 24, 2021 FINDINGS: Hepatomegaly. Normal hepatic uptake at 5 minutes. Normal common bile duct and small bowel activity. G allbladder is visualized by 20 minutes. No evidence of acute cholecystitis. Gallbladder ejection fraction 62% within normal limits. No evidence of chronic cholecystitis. NM/NM hepatobiliary w phar* [id number] IMPRESSION: 1. No evidence of acute or chronic cholecystitis. 2. Gallbladder ejection fraction 62% within normal limits. 3. Hepatomegaly.
== END 2022-01-26 07:42 | disposition home or self-care (01) ==
LOC: RAD 07:43
PROVIDERS: PCP Family Medicine; Visit Provider Surgery
DX: R10.9 Unspecified abdominal pain (principal); R16.0 Hepatomegaly, not elsewhere classified
CPT/HCPCS: 78227; A9537

== ENCOUNTER → 2022-01-27 15:45 | Outpatient (BNVA) | payer MEDICAID, SELFPAY | PROVIDERS: PCP Family Medicine; Visit Provider Surgery | DX: Z53.8 Procedure and treatment not carried out for other reasons (principal) ==

== ENCOUNTER → 2022-02-14 09:49 | Outpatient (BNVA) | payer MEDICAID, SELFPAY | PROVIDERS: PCP Family Medicine; Visit Provider Internal Medicine Cardiovascular Disease | DX: R07.9 Chest pain, unspecified (principal); K21.9 Gastro-esophageal reflux disease without esophagitis; I51.7 Cardiomegaly | CPT/HCPCS: 99203; 99204 ==

== ENCOUNTER 2022-08-08 05:59 | Emergency (ER) | payer MEDICAID, SELFPAY ==
[2022-08-08] VITALS (17 sets, daily range): BP systolic 128–167; BP diastolic 91–125; PULSE 73; RESP 16–22; TEMP 36.7; O2SAT 98–100
[2022-08-08 06:54] LABS: Basophils % 0.5 %; Eosinophils # 0.1 10^3/uL (0.0-0.8); Eosinophils % 1.2 %; Hematocrit 42.3 % (37.0-47.0); Hemoglobin 13.4 g/dL (11.5-15.3); Lymphocytes # 1.9 10^3/uL (0.8-4.8); Lymphocytes % 29.6 %; Mean Corpuscular HGB Conc 31.7 g/dL (30.0-36.0); Mean Corpuscular Hemoglobin 28.8 pg (28.0-34.0); Mean Platelet Volume 10.8 fL (7.4-10.4); Monocytes # 0.4 10^3/uL (0.2-0.9); Monocytes % 5.4 %; Neutrophils # 4.11 10^3/uL (1.8-7.7); Neutrophils % 62.8 %; Nucleated Red Blood Cells % 0 %; Platelet Count 242 10^3/cmm (130-400); Red Blood Count 4.65 10^6/uL (4.1-5.3); White Blood Count 6.5 10^3/uL (4.0-10.0)
--- NOTE | 2022-08-08 06:58 | ED_ITS ---
HPI - Abdominal Pain General: Chief Complaint: Abdominal Pain Stated Complaint: Pain right below the breast Time Seen by Provider: 08/08/22 06:06 Source: patient Mode of arrival: ambulatory History of Present Illness: 27-year-old female presents emergency room with complaints of right upper quadrant abdominal pain she refers to the pain as being underneath her right breast. She had to begin lesson around 10:00. She did not have any pain and is similar nature prior to this. She had a earlier this year she was seen by Dr. Mao for abdominal pain. Patient is morbidly obese. She had an ultrasound done in December that showed normal common bile duct, there is no evidence of acute cholecystitis or cho lelithiasis. She had some hepatic steatosis. She had a follow-up scheduled but does not look like she actually made follow-up appointment in January. She has not had any symptoms since then. Today she is having right upper quadrant abdominal pain without radiation. Denies dysuria urgency or frequency. MD elicited complaint: abdominal pain Pertinent past history: other (Epigastric pain, work-up for cholecystitis December 2021 negative) Onset (ago): hour(s) Pain Consistency: constant Location: RUQ Severity: moderate Quality: stabbing Radiation: none Migration to: no migration Exacerbating factors: nothing Relieving factors: nothing Associated Symptoms: Reports bloating, nausea, poor appetite and vomiting; Denies anorexia, belching, change in bowel habits, change in stool character, chills, coffee ground emesis, constipation, GI cramping, diarrhea, dyspepsia, dysuria, excessive flatus, fever(s), heartburn, hematochezia, hematuria, hematemesis, fecal incontinence, loose stools, melena and syncope Related Data: Date of Last Menstrual Period: 12/14/20 Review of Systems Const: Denies: fever(s), chills, fatigue or malaise ENMT: Denies: throat pain, ear or mastoid pain, nasal discharge or nasal con gestion Card: Denies: chest pain or syncope Resp: Denies: dyspnea, productive cough or non-productive cough GI: Reports: abdominal pain, nausea, vomiting and bloating; Denies: hematemesis, coffee ground emesis, heartburn, diarrhea, constipation, GI cramping, belching, excessive flatus, fecal incontinence, change in bowel habits, change in stool character, hematochezia or melena : Denies: flank pain, difficulty voiding, dysuria, urinary frequency, urinary urgency or hematuria Skin/Breast: Denies: rash or pruritus PFSH ED PFSH: Medical History Anxiety and depression Diagnosed in 2018. She did do therapy in the past but not currently. Was on medication prior to the -Cymbalta, clonazepam and citalopram managed by her primary care provider. She stopped when she found out she was in 2020 GERD (gastroesophageal reflux disease) Gestational diabetes Hepatic steatosis Hypothyroidism Morbid obesity with BMI of 50.0-59.9, adult No pertinent past medical history Denies diabetes, asthma, hypertension, seizures, DVT/PE PCP: Dr. Tyler Surgical History History of History of incision and drainage (~12/2020) for rectal abscess performed by Dr. Mao at [facility] Family History Family/Other Diabetes Maternal Uncle Mother Hypertension Thyroid disease Denies family history of Colon cancer Ovarian cancer Heart disease Hypercholesteremia Breast cancer Uterine cancer Stroke Social History Smoking and tobacco status: never smoked Female Reproductive History: Date of last menstrual period: 12/14/20 Physical Exam Const: COMMON NORMALS: no acute distress GENERAL APPEARANCE: cooperative and comfortable ORIENTATION/CONSCIOUSNESS: Yes awake, Yes oriented to person, Yes oriented to place and Yes oriented to time HENMT: COMMON NORMALS: normocephalic, atraumatic, hearing grossly normal bilaterally, external ears normal, EAC's normal, TM's normal bilaterally, Normal nasal mucous membranes and turbinates present, moist oral mucous membranes and oropharynx normal HEAD & SCALP: normocephalic and atraumatic NOSE: Normal nasal mucous membranes and turbinates present EXTERNAL EAR: Yes external ears normal EXTERNAL AUDITORY CANAL: EAC's normal TYMPANIC MEMBRANE: TM's normal bilaterally Eye: COMMON NORMALS: Equal, round and reactive pupils present, EOMs intact bilaterally, conjunctivae normal and no scleral icterus CONJUNCTIVA: Yes conjunctivae normal PUPIL: Yes Equal, round and reactive pupils present Neck/C-Spine: COMMON NORMALS: full ROM, no lymphadenopathy, supple and no JVD Lymph: LYMPHATIC: no lymphadenopathy noted and no lymphedema noted Resp: COMMON NORMALS: normal respiratory effort, No retractions, No use of accessory muscles and clear to auscultation bilaterally AUSCULTATION: clear to auscultation bilaterally Cardio: COMMON NORMALS: no JVD, regular rate, regular rhythm and No murmurs present (Cardio) RATE: regular rate RHYTHM: regular rhythm GI: COMMON NORMALS: No hepatosplenomegaly present AUSCULTATION: Yes normoactive bowel sounds PALPATION: Yes Tenderness to palpation present (GI) Details: RUQ, No Guarding due to palpation present (GI) and Yes No hepatosplenomegaly present Extremity: COMMON NORMALS: normal to inspection, capillary refill normal, no clubbing, cyanosis or edema, no calf tenderness and no pedal edema Neuro: SENSORIUM/ORIENTATION: Yes oriented to person, Yes oriented to place and Yes oriented to time Skin: COMMON NORMALS: no rashes or lesions noted GENERAL SKIN EXAM: no rashes or lesions noted Course Vital Signs: Vital signs: Vital Signs Temperature 98.0 F 08/08/22 06:07 Pulse Rate 73 08/08/22 06:07 Respiratory Rate 18 08/08/22 12:07 Blood Pressure 149/103 08/08/22 12:45 Pulse Oximetry 100 08/08/22 07:45 Oxygen Delivery Me thod 08/08/22 06:07 MDM - Abdominal Pain Medical Decision Making Gallbladder ultrasound did not have any indication of acute cholecystitis but there was a question of a dilated common bile duct patient previously marked elevation liver enzymes and bilirubin that improved no other up again although not as bad as prior. He had MRCP was done there is no no imaging findings suggestive of dilation or obstruction of the common bile duct. Patient's pain is better will discharge home the MRCP was read as possible mild acute cholecystitis although her symptoms have resolved. Discussed with Dr. Sumner we are going to discharge her and have her follow-up outpatient for probable scheduled cholecystectomy. Discussed diet adjustments with the patient. Medical Records I reviewed the patient's medical records. Lab Data I reviewed the patient's lab results. : 08/08/22 06:38 08/08/22 06:38 Labs/Radiology: Radiology Impressions Gallbladder Ultrasound 08/08/22 07:02 IMPRESSION: 1. New mild dilatation of the common bile duct since 12/24/2021. Common bile duct now measures 7 mm as compared to 4 mm on the prior study. Cannot exclude stone in the distal common bile duct. 2. Nonshadowing focus in the gallbladder. May be is very small nonshadowing stone or focus of debris. 3. Hepatomegaly and hepatic steatosis. Cholangiopancreatography MRI 08/08/22 08:02 Impression: 1. Normal common bile duct measuring 6 mm. No evidence of choledocholithiasis. Normal tapering of the common bile duct at the pancreatic head. 2. Mild diffuse gallbladder wall thickening with a small amount of pericholecystic fluid. Fluid distended gallbladder. Recommend correlation for cholecystitis. Fluid can also be seen with hepatocellular disease. Consider nucl ear medicine HIDA scan in further evaluation. 3. Tiny calculus seen on the ultrasound is not well seen on this study. 4. Hepatomegaly. 5. No intrahepatic biliary ductal dilatation. 6. No other significant findings. Laboratory Results WBC 6.5 10^3/uL (4.0-10.0) 08/08/22 06:38 RBC 4.65 10^6/uL (4.1-5.3) 08/08/22 06:38 Hgb 13.4 g/dL (11.5-15.3) 08/08/22 06:38 Hct 42.3 % (37.0-47.0) 08/08/22 06:38 MCV 91.0 fl (81-99) 08/08/22 06:38 MCH 28.8 pg (28.0-34.0) 08/08/22 06:38 MCHC 31.7 g/dL (30.0-36.0) 08/08/22 06:38 RDW 14.0 % (12.1-15.1) 08/08/22 06:38 Plt Count 242 10^3/cmm (130-400) 08/08/22 06:38 MPV 10.8 fL (7.4-10.4) H 08/08/22 06:38 Neut % (Auto) 62.8 % 08/08/22 06:38 Lymph % (Auto) 29.6 % 08/08/22 06:38 [place] % (Auto) 5.4 % 08/08/22 06:38 Eos % (Auto) 1.2 % 08/08/22 06:38 Baso % (Auto) 0.5 % 08/08/22 06:38 Neut # (Auto) 4.11 10^3/uL (1.8-7.7) 08/08/22 06:38 Lymph # (Auto) 1.9 10^3/uL (0.8-4.8) 08/08/22 06:38 [place] # (Auto) 0.4 10^3/uL (0.2-0.9) 08/08/22 06:38 Eos # (Auto) 0.1 10^3/uL (0.0-0.8) 08/08/22 06:38 Baso # (Auto) 0.0 10^3/uL (0.0-0.1) 08/08/22 06:38 Nucleated RBC % (auto) 0 % 08/08/22 06:38 Nucleated RBCs # 0.0 /100WBC 08/08/22 06:38 Sodium 133 mmol/L (136-145) L 08/08/22 06:38 Potassium 3.8 mmol/L (3.5-5.1) 08/08/22 06:38 Chloride 100 mmol/L (98-107) 08/08/22 06:38 Carbon Dioxide 20 mmol/L (22-29) L 08/08/22 06:38 Anion Gap 16.8 (5-19) 08/08/22 06:38 BUN 12 mg/dL (6-20) 08/08/22 06:38 Creatinine 0.6 mg/dL (0.5-0.9) 08/08/22 06:38 GFR Calculation 119.0 mL/min (90-130) 08/08/22 06:38 Glucose 99 mg/dL (65-115) 08/08/22 06:38 Calculated Osmolality 276 mOsm/kg (285-295) L 08/08/22 06:38 Calcium 9.3 mg/dL (8.5-10.5) 08/08/22 06:38 Total Bilirubin 1.4 mg/dL (0.15-1.2) H 08/08/22 06:38 AST 80 U/L (0-32) H 08/08/22 06:38 ALT 70 U/L (0-33) H 08/08/22 06:38 Alkaline Phosphatase 78 U/L (35-105) 08/08/22 06:38 C-Reactive Protein 7.9 mg/L (0.0-4.9) H 08/08/22 06:38 Total Protein 7.9 g/dL (6.6-8.7) 08/08/22 06:38 Albumin 3.8 g/dL (3.5-5.2) 08/08/22 06:38 Globulin 4.1 g/dL (1.3-4.6) 08/08/22 06:38 Lipase 29 U/L (13-60) 08/08/22 06:38 HCG, Qual Negative (Negative) 08/08/22 06:38 Urine Color Padmini (Yellow) 08/08/22 08:12 Urine Appearance Clear (CLEAR) 08/08/22 08:12 Urine pH 6 (5-7) 08/08/22 08:12 Ur Specific [place] 1.025 (1.005-1.030) 08/08/22 08:12 Urine Protein Trace (Negative) 08/08/22 08:12 Urine Glucose (UA) Norm (Normal) 08/08/22 08:12 Urine Ketones 1+ (Negative) H 08/08/22 08:12 Urine Blood Neg (Negative) 08/08/22 08:12 Urine Nitrate Negative (Negative) 08/08/22 08:12 Urine Bilirubin 1+ (Negative) H 08/08/22 08:12 Urine Urobilinogen 1 mg/dL (Negative) H 08/08/22 08:12 Ur Leukocyte Esterase Negative (Negative) 08/08/22 08:12 Urine RBC 0-4 /hpf (0-2) H 08/08/22 08:12 Urine WBC None /hpf (0-5) 08/08/22 08:12 Ur Squamous Epith Cells 0-4 /hpf (0-5) H 08/08/22 08:12 Amorphous Sediment Not Reportable 08/08/22 08:12 Urine Bacteria None /hpf (NONE) 08/08/22 08:12 Discharge Plan Discharge Patient Disposition: Home Clinical Impression: Biliary colic, Elevated LFTs Condition: Stable Prescriptions: New pantoprazole 40 mg tablet,delayed release (DR/EC) 40 mg PO DAILY Qty: 30 0RF hydrocodone-acetaminophen 5-325 mg tablet 1 tab PO Q6H PRN (Reason: pain) Qty: 20 0RF promethazine 25 mg tablet 25 mg PO Q6H PRN (Reason: nausea and vomiting) Qty: 20 0RF Discontinued famotidine [Pepcid] 20 mg tablet 20 mg PO DAILY No Action acetaminophen 500 mg Tablet 500 mg PO Q6H PRN (Reason: Pain) phentermine 37.5 mg tablet 37.5 mg PO DAILY levothyroxine 75 mcg tablet 75 mcg PO DAILY Tri-VyLibra 0.18/0.215/0.25 mg-35 mcg (28) tablet 1 tab PO DAILY Discharge Orders: Discharge ED (Routine); Ordered 08/08/22 Ordered By: Chris Ortega Referrals: Natasha Tyler MD [Primary Care Provider] - Discharge Diet: As Directed Discharge Activity: Increase activity as tolerated Patient Instructions: Biliary Colic (ED), Opioid Safety, Pain Management Activity Restrictions/Additional Instructions: Is management make arrangements for her to follow-up with general surgery. Coding Level of Care Code ED Pet Handler for Viryg Fwd Exam Comprehensive
--- NOTE | 2022-08-08 07:02 | US_ITS ---
WS: [id number] RIGHT UPPER QUADRANT ULTRASOUND HISTORY: RUQ abd pain COMPARISON: 12/24/2021 Liver: 20.1 cm in length. Liver is enlarged with diffuse low attenuation from hepatic steatosis. Live r is measuring larger than on the prior study. No intrahepatic bile duct dilatation. Portal Vein: Normal hepatopetal flow with monophasic waveform. Gallbladder: Normally distended gallbladder. There is a nonshadowing focus in the gallbladder measuri ng 6 mm. Does not appear to be mobile. May be a small nonshadowing stone or tiny focus of debris. Thi s was not present on the prior ultrasound. CBD: 0.7 cm, new dilatation since the prior study. Pancreas: Not well visualized. Right kidney: 12.1 cm in length. Normal size and echogenicity. No hydronephrosis or mass. Aorta and IVC: Unremarkable abdominal aorta and IVC. No ascites. US/US gall bladder [id number] IMPRESSION: 1. New mild dilatation of the common bile duct since 12/24/2021. Common bile du ct now measures 7 mm as compared to 4 mm on the prior study. Cannot exclude sto ne in the distal common bile duct. 2. Nonshadowing focus in the gallbladder. May be is very small nonshadowing st one or focus of debris. 3. Hepatomegaly and hepatic steatosis.
[2022-08-08] MEDS: sodium chloride 0.9% 1,000 ML 999 ML IV (07:03)
[2022-08-08 07:12] LABS: Alanine Aminotransferase 70 U/L (0-33); Albumin Level 3.8 g/dL (3.5-5.2); Alkaline Phosphatase 78 U/L (35-105); Anion Gap 16.8 (5-19); Aspartate Amino Transferase 80 U/L (0-32); Blood Urea Nitrogen 12 mg/dL (6-20); C Reactive Protein 7.9 mg/L (0.0-4.9); Calcium 9.3 mg/dL (8.5-10.5); Carbon Dioxide 20 mmol/L (22-29); Chloride 100 mmol/L (98-107); Globulin 4.1 g/dL (1.3-4.6); Glucose 99 mg/dL (65-115); Lipase 29 U/L (13-60); Osmolality Calculated 276 mOsm/kg (285-295); Potassium 3.8 mmol/L (3.5-5.1); Sodium 133 mmol/L (136-145); Total Bilirubin 1.4 mg/dL (0.15-1.2); Total Protein 7.9 g/dL (6.6-8.7)
[2022-08-08 07:13] LABS: HCG, Serum Qual Negative (Negative)
--- NOTE | 2022-08-08 08:02 | MR_ITS ---
WS: [id number] MRI/MRCP OF THE ABDOMEN WITHOUT GADOLINIUM ENHANCEMENT TECHNIQUE: Thin and thick slab MRCP, Axial T2, Coronal MRCP, Axial Dual Echo, and Axial 2-D Fiesta imaging was obtained. Coronal 2-D Fiesta imaging. CLINICAL INFORMATION: dialated CBD COMPARISON: Ultrasound August 08, 2022 FINDINGS: Hepatomegaly with diffuse fatty infiltration of the liver. Fluid distended gallbladder. Mild diffuse gallbladder wall thickening with a small amount of pericholecystic fluid. Previously described tiny c alculus better seen on the ultrasound. No intrahepatic biliary duct dilatation. Portal vein and splen ic vein are patent. Normal GE junction. Adrenal glands are normal. No hydronephrosis in either kidney. Normal pancreatic parenchymal enhancem ent. Normal tapering of the common bile duct distally. Common bile duct measures 6 mm. No evidence of obstructing choledocholithiasis. No pancreatic head lesion. Normal caliber abdominal aorta. MR/MR MRCP [id number] Impression: 1. Normal common bile duct measuring 6 mm. No evidence of choledocholithiasis. Normal tapering of the common bile duct at the pancreatic head. 2. Mild diffuse gallbladder wall thickening with a small amount of pericholecy stic fluid. Fluid distended gallbladder. Recommend correlation for cholecystiti s. Fluid can also be seen with hepatocellular disease. Consider nuclear medicin e HIDA scan in further evaluation. 3. Tiny calculus seen on the ultrasound is not well seen on this study. 4. Hepatomegaly. 5. No intrahepatic biliary ductal dilatation. 6. No other significant findings.
[2022-08-08] MEDS: HYDROmorphone 1 mg/mL INJ 1 mL IVP ×2 (08:15→12:07)
[2022-08-08 08:25] LABS: Bilirubin Urine 1+ (Negative); Blood Urine Neg (Negative); Glucose Urine UA Norm (Normal); Ketones Urine 1+ (Negative); Leukocyte Esterase Urine Negative (Negative); Nitrate Urine Negative (Negative); Protein Urine Trace (Negative); Specific Gravity, Urine 1.025 (1.005-1.030); Urine Appearance Clear (CLEAR); Urine Color Amber (Yellow); Urobilinogen Urine 1 mg/dL (Negative); pH Urine 6 (5-7)
[2022-08-08 08:26] LABS: Add Urine Microscopic? YES
[2022-08-08 08:30] LABS: RBC Urine 0-4 /hpf (0-2); Squamous Epithelial Cell Urine 0-4 /hpf (0-5)
[2022-08-08 08:31] LABS: Add Urine Culture? No
== END 2022-08-08 13:00 | disposition home or self-care (01) ==
PROVIDERS: Emergency Medicine; Emergency Provider Family Medicine; PCP Family Medicine
DX: K80.50 Calculus of bile duct without cholangitis or cholecystitis without obstruction (principal); R79.89 Other specified abnormal findings of blood chemistry
CPT/HCPCS: 36415; 74181; 76705; 80053; 81001; 83690; 84703; 85025; 86140; 96361; 96374; 96376; 99285; J1170; J7030

== ENCOUNTER 2022-08-15 09:49 | Day surgery (SDC) | payer MEDICAID, SELFPAY ==
[2022-08-12 12:14] VITALS: BMI 48.9
[2022-08-15 10:09] VITALS: BP 156/98; PULSE 90; RESP 16; TEMP 36.3; O2SAT 96
[2022-08-15] MEDS: sodium chloride 0.9% 1,000 ML 30 ML IV (10:29)
[2022-08-15 10:32] LABS: OR HCG Qualitative Urine Negative (Negative)
--- NOTE | 2022-08-15 11:00 | W.PM.OPSUD ---
Surgery/Procedure H&P Update DATE OF PROCEDURE: August 15, 2022 DATE H&P PERFORMED: 08/11/22 H&P UPDATE INFORMATION: I have reviewed H&P completed within last 30 days, I have examined patient prior to procedure and No changes to prior documentation PREOP DIAGNOSIS: Epigastric pain PRIMARY INDICATION FOR PROCEDURE: The same PLANNED PROCEDURE: Operation Date: 08/15/22 11:15 Proposed Procedures p EGD 23055,R10.13(Not Applicable) - Jens Mao MD
--- NOTE | 2022-08-15 11:25 | P.ANESASSM_ITS ---
Pre-Anesthetic Assessment Height/Weight: Height 1.73 m Weight 146.057 kg Temp Pulse Resp BP Pulse Ox O2 Del Method 97.3 F L 90 16 156/98 96 08/15/22 10:09 08/15/22 10:09 08/15/22 10:09 08/15/22 10:09 08/15/22 10:09 08/15/22 10:09 Preop Diagnosis: Epigastric pain Operation Date: 08/15/22 11:15 Proposed Procedures p EGD 94344,R10.13(Not Applicable) - Jens Mao MD Familial anesthetic complications: None Was Beta Bibiana taken within 24 hours: N/A Was Clonidine taken within 24 hours: N/A Last intake: Intake Last Liquid Date 08/14/22 Last Liquid Time 20:00 Last Solid Date 08/14/22 Last Solid Time 17:30 Social No alcohol and No tobacco Exam alert, oriented x 3, clear to auscultation bilaterally and regular rate & rhythm Airway Submandibular: within normal limits Cervical ROM: within normal limits Mallampati: Class II Dentition: full History/ROS No significant history except as noted and No significant complaints Pulmonary None reported CV/HEM Hypertension and None reported Urinary Tract Infection (UTI during ) and None reported Hepatic Patient states Dr. Mao has mentioned she possibly has liver issues. No diagnosis as of yet GI Gastroesophageal Reflux Disease (Well controlled) Metabolic Morbid Obesity and Thyroid Disease [facility] None reported Neuropsych Anxiety and Depression Anesthetic Plan ASA status: 2 Anesthesia: Anesthesia Evaluation, General and MAC Risk of > 500 ml blood loss (7ml/kg in children): No Medications/Allergies Home Medications Medication Instructions Recorded Confirmed Last Taken Type levothyroxine 75 mcg tablet 75 mcg PO DAILY 08/08/22 08/15/22 08/15/22 History norgestimate-ethinyl estradiol 1 tab PO DAILY 08/08/22 08/15/22 08/14/22 History 0.18 mg/0.215mg/0.25mg-35 mcg(28)tablet (Tri-VyLibra) pantoprazole 40 mg tablet,delayed 40 mg PO DAILY #30 tabs 08/08/22 08/15/22 08/15/22 Rx release phentermine 37.5 mg tablet 37.5 mg PO DAILY 08/08/22 08/12/22 08/07/22 History promethazine 25 mg tablet 25 mg PO Q6H PRN nausea and 08/08/22 08/15/22 08/11/22 Rx vomiting #20 tabs Allergies Allergy/AdvReac Type Severity Reaction Status Date / Time No Known Allergies Allergy Verified 08/12/22 06:06 Current Medications Generic Name Dose Route Start Last Admin Trade Name Freq PRN Reason Stop Dose Admin Sodium Chloride 1,000 mls @ 30 mls/hr 08/15/22 10:15 08/15/22 10:29 Sodium Chloride 0.9% IV 08/16/22 10:14 30 mls/hr .Q24H SHARON Administration PFSH Anesthesia Medical History Anxiety and depression Diagnosed in 2018. She did do therapy in the past but not currently. Was on medication prior to the -Cymbalta, clonazepam and citalopram managed by her primary care provider. She stopped when she found out she was in 2020 GERD (gastroesophageal reflux disease) Gestational diabetes Hepatic steatosis Hypothyroidism Morbid obesity with BMI of 50.0-59.9, adult No pertinent past medical history Denies diabetes, asthma, hypertension, seizures, DVT/PE PCP: Dr. Tyler Surgical History History of History of incision and drainage (~12/2020) for rectal abscess performed by Dr. Mao at [facility] Family History Family/Other Diabetes Maternal Uncle Mother Hypertension Thyroid disease Denies family history of Colon cancer Ovarian cancer Heart disease Hypercholesteremia Breast cancer Uterine cancer Stroke Social History Smoking and tobacco status: never smoked Female Reproductive History Date of last menstrual period: 07/28/22 Data Anesthesia Cardiac Studies: No Data to Display
[2022-08-15 11:48] VITALS: BP 113/70; PULSE 81; RESP 16; TEMP 36.1; O2SAT 100
[2022-08-15 11:58] VITALS: BP 106/78; PULSE 75; RESP 16; O2SAT 97
--- NOTE | 2022-08-15 12:53 | ANE.PACU2 ---
Inpatient post-anesthesia follow up: Airway intact: Yes Vital signs: Temperature 97.0 F Pulse Rate 75 Respiratory Rate 16 Blood Pressure 106/78 Pulse Oximetry 97 Oxygen Delivery Me thod Room Air Oxygen Flow Rate Fraction of Inspir ed Oxygen Hydration adequate: Yes Nausea and vomiting: No Pain level: 1 Mental status: Baseline
== END 2022-08-15 12:16 | disposition home or self-care (01) ==
PROVIDERS: Anesthesiology; PCP Nurse Practitioner Family; Visit Provider Surgery
PROC: 0DJ08ZZ Inspection of Upper Intestinal Tract, Via Natural or Artificial Opening Endoscopic (ICD-10-PCS; CPT 43235; principal; 2022-08-15 11:15)
DX: R10.13 Epigastric pain (principal); K21.00 Gastro-esophageal reflux disease with esophagitis, without bleeding; K29.50 Unspecified chronic gastritis without bleeding; B96.81 Helicobacter pylori [H. pylori] as the cause of diseases classified elsewhere; I10 Essential (primary) hypertension; E66.01 Morbid (severe) obesity due to excess calories; Z68.42 Body mass index [BMI] 45.0-49.9, adult; F41.9 Anxiety disorder, unspecified; F32.A Depression, unspecified; E03.9 Hypothyroidism, unspecified
CPT/HCPCS: 43239; 81025; 84703; 88305; J2704; J7030

== ENCOUNTER 2023-03-01 20:35 | Emergency (ER) | payer MEDICAID, SELFPAY ==
[2023-03-01 20:47] VITALS: BP 163/112; PULSE 88; RESP 16; TEMP 36.7; O2SAT 96; BMI 49.1
--- NOTE | 2023-03-01 20:50 | XRR_ITS ---
PROCEDURE INFORMATION: Exam: XR Left Foot Exam date and time: 03/01/2023 8:55 PM Age: 27 years old Clinical indication: Pain; Foot; Left; Additional info: Injury TECHNIQUE: Imaging protocol: Radiologic exam of the left foot. Views: 3 or more views. COMPARISON: No relevant prior studies available. FINDINGS: Bones/joints: Osseous structures are intact. Negative for fracture. Joint spaces are preserved. Soft tissues: Normal. XR/XR foot LT min 3V* [id number] IMPRESSION: No acute findings.
--- NOTE | 2023-03-01 20:50 | XRR_ITS ---
PROCEDURE INFORMATION: Exam: XR Left Ankle Exam date and time: 03/01/2023 8:55 PM Age: 27 years old Clinical indication: Pain; Ankle; Left; Additional info: Injury TECHNIQUE: Imaging protocol: Radiologic exam of the left ankle. Views: 3 or more views. COMPARISON: No relevant prior studies available. FINDINGS: Bones/joints: Osseous structures are intact. Negative for fracture. Joint spaces are preserved. Soft tissues: Normal. XR/XR ankle LT min 3V* [id number] IMPRESSION: No acute findings.
--- NOTE | 2023-03-01 21:10 | W.ED.EXTPRO ---
HPI - Extremity Problem General: Chief complaint: Extremity Injury, Lower Stated complaint: fall, left ankle injury Time Seen by Provider: 03/01/23 20:53 Source: patient Mode of arrival: ambulatory Limitations: no limitations History of Present Illness: 27-year-old female states that she had stepped a hole in her yard today twisted her left ankle she states she been having some left lateral ankle pain since then pain is a 5 out of 10 she is been able to ambulate on it states it does have some pain when she ambulates she denies any other injuries denies any knee or hip pain. Associated symptoms: Deny chest pain, fever(s) or rash Review of Systems Const: Denies: fever(s) or chills Eyes: Denies: eye discomfort ENMT: Denies: throat pain or dental pain Card: Denies: chest pain Resp: Denies: dyspnea GI: Denies: abdominal pain, nausea, vomiting or diarrhea Musc: Reports: extremity pain; Denies: neck pain or back pain Skin/Breast: Denies: rash Neuro: Denies: headache(s) PFSH ED PFSH: Medical History Anxiety and depression Diagnosed in 2018. She did do therapy in the past but not currently. Was on medication prior to the -Cymbalta, clonazepam and citalopram managed by her primary care provider. She stopped when she found out she was in 2020 GERD (gastroesophageal reflux disease) Gestational diabetes Hepatic steatosis Hypothyroidism Morbid obesity with BMI of 50.0-59.9, adult No pertinent past medical history Denies diabetes, asthma, hypertension, seizures, DVT/PE PCP: Dr. Tyler Surgical History History of History of incision and drainage (~12/2020) for rectal abscess performed by Dr. Mao at [facility] Family History Family/Other Diabetes Maternal Uncle Mother Hypertension Thyroid disease Denies family history of Colon cancer Ovarian cancer Heart disease Hypercholesteremia Breast cancer Uterine cancer Stroke Social History Smoking and tobacco status: never smoked Substance/Drug Use: never Do you think of yourself as: Straight/Heterosexual Physical Exam Const: COMMON NORMALS: no acute distress and patient oriented x3 HENMT: COMMON NORMALS: normocephalic HEAD & SCALP: normocephalic Eye: COMMON NORMALS: conjunctivae normal CONJUNCTIVA: Yes conjunctivae normal Neck/C-Spine: COMMON NORMALS: supple Chest: COMMONS NORMALS: normal inspection of the chest Resp: COMMON NORMALS: normal respiratory effort Cardio: COMMON NORMALS: regular rate RATE: regular rate Extremity: NARRATIVE EXTREMITY EXAM: Tenderness over left lateral ankle no obvious deformity Achilles tendons intact Neuro: COMMON NORMALS: patient oriented x3 Psych: COMMON NORMALS: mental status grossly normal Skin: COMMON NORMALS: no rashes or lesions noted GENERAL SKIN EXAM: no rashes or lesions noted Course Vital Signs: Vital signs: Vital Signs Temperature 98.0 F 03/01/23 20:47 Pulse Rate 88 03/01/23 20:47 Respiratory Rate 16 03/01/23 20:47 Blood Pressure 163/112 03/01/23 20:47 Pulse Oximetry 96 03/01/23 20:47 Oxygen Delivery Me thod Room Air 03/01/23 20:47 MDM - Extremity (Nontraumatic) Medical Decision Making Patient presents here with an ankle sprain x-ray here is negative she has been ambulatory we will Masood wrap we will get her follow-up with foot and ankle we will prescribe her Naprosyn she is to ice return if worsening x-ray shows no fracture. Imaging Data xr l ankle: I personally reviewed and interpreted this imaging study as follows: My impression: no acute abnormality Discharge Plan Discharge Patient Disposition: Home Clinical Impression: Left ankle sprain Condition: Stable Prescriptions: New naproxen [Naprosyn] 500 mg tablet 500 mg PO BID PRN (Reason: pain) Qty: 20 0RF No Action clarithromycin 500 mg tablet 500 mg PO BID 14 Days Qty: 28 0RF amoxicillin 500 mg tablet 1,000 mg PO BID 14 Days Qty: 56 0RF pantoprazole [Protonix] 40 mg tablet,delayed release (DR/EC) 40 mg PO BID 14 Days Qty: 28 0RF phentermine 37.5 mg tablet 37.5 mg PO DAILY levothyroxine 75 mcg tablet 75 mcg PO DAILY norgestimate-ethinyl estradiol [Tri-VyLibra] 0.18/0.215/0.25 mg-35 mcg (28) tablet 1 tab PO DAILY pantoprazole 40 mg tablet,delayed release (DR/EC) 40 mg PO DAILY Qty: 30 0RF promethazine 25 mg tablet 25 mg PO Q6H PRN (Reason: nausea and vomiting) Qty: 20 0RF Discharge Orders: Discharge ED (Routine); Ordered 03/01/23 Ordered By: Tanvir Blake Referrals: Ghassan Fonseca DPM [Physician] - 1-3 days Fields,YUMIKO Gudino [Primary Care Provider] - Discharge Diet: Advance as tolerated Discharge Activity: Resume usual activity Patient Instructions: Ankle Sprain (ED) Coding Level of Care Code ED Fleet Coordinator for Allison Meeks
[2023-03-01] MEDS: naproxen 500 mg Tablet PO (21:15)
== END 2023-03-01 21:18 | disposition home or self-care (01) ==
PROVIDERS: Emergency Provider Emergency Medicine; PCP Nurse Practitioner Family
DX: S93.402A Sprain of unspecified ligament of left ankle, initial encounter (principal); X50.1XXA Overexertion from prolonged static or awkward postures, initial encounter
CPT/HCPCS: 73610; 73630; 99283

== ENCOUNTER 2023-06-06 11:00 | Outpatient (CLI) | payer MEDICAID, SELFPAY ==
--- NOTE | 2023-06-06 11:08 | US_ITS ---
WS: [id number] THYROID ULTRASOUND HISTORY: THYROMEGALY COMPARISON: None available. Right lobe: 1.5 cm x 1.5 cm x 6.2 cm (w x ap x l). Volume: 7.3 cm3. Normal sized gland is mildly diffusely heterogeneous throughout with very small ill-defined nodules. Mild increased vascularity. Thin fibrous echogenic septa. Left lobe: 1.3 cm x 1.5 cm x 5.2 cm (w x ap x l). Volume: 5.6 cm3. Small caliber gland with very small hypoechoic ill-defined nodules. Thin echogenic septa. Mild increa sed vascularity. Isthmus: 0.3 cm. 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 No thyroid mass. No thyromegaly.
== END 2023-06-06 11:01 | disposition home or self-care (01) ==
LOC: RAD 11:01
PROVIDERS: PCP Nurse Practitioner Family; Visit Provider Nurse Practitioner Family
DX: E01.0 Iodine-deficiency related diffuse (endemic) goiter (principal)
CPT/HCPCS: 76536

== ENCOUNTER → 2023-08-15 11:12 | Outpatient (BNVA) | payer MEDICAID, SELFPAY | PROVIDERS: PCP Nurse Practitioner Family; Referring Provider Nurse Practitioner Family; Visit Provider Internal Medicine | DX: E03.9 Hypothyroidism, unspecified (principal); E06.3 Autoimmune thyroiditis; R63.5 Abnormal weight gain; R53.83 Other fatigue | CPT/HCPCS: 36415; 84439; 84443 ==

== ENCOUNTER 2023-10-13 14:31 | Outpatient (CLI) | payer MEDICAID, SELFPAY ==
[2023-10-13 15:34] LABS: Free T4 Free Thyroxine 1.22 ng/dL (0.82-1.77)
== END 2023-10-13 14:32 | disposition home or self-care (01) ==
LOC: LAB 14:34
PROVIDERS: PCP Nurse Practitioner Family; Visit Provider Internal Medicine
DX: E03.9 Hypothyroidism, unspecified (principal)
CPT/HCPCS: 36415; 84439; 84443

== ENCOUNTER 2023-12-12 14:37 | Outpatient (CLI) | payer MEDICAID, SELFPAY ==
[2023-12-12 15:39] LABS: Free T4 Free Thyroxine 1.82 ng/dL (0.82-1.77); Thyroid Stimulating Hormone 0.13 uIU/mL (0.27-4.20)
== END 2023-12-12 14:38 | disposition home or self-care (01) ==
LOC: LAB 14:38
PROVIDERS: PCP Nurse Practitioner Family; Visit Provider Internal Medicine
DX: E03.9 Hypothyroidism, unspecified (principal)
CPT/HCPCS: 36415; 84439; 84443

== ENCOUNTER 2023-12-18 13:05 | Outpatient (CLI) | payer MEDICAID, SELFPAY ==
[2023-12-18 14:10] LABS: Free T4 Free Thyroxine 1.39 ng/dL (0.82-1.77)
== END 2023-12-18 13:06 | disposition home or self-care (01) ==
LOC: LAB 13:06
PROVIDERS: PCP Nurse Practitioner Family; Visit Provider Internal Medicine
DX: E06.3 Autoimmune thyroiditis (principal)
CPT/HCPCS: 36415; 84439

== ENCOUNTER 2024-02-23 09:08 | Outpatient (CLI) | payer MEDICAID, SELFPAY ==
[2024-02-23 09:53] LABS: Free T4 Free Thyroxine 1.24 ng/dL (0.82-1.77); Thyroid Stimulating Hormone 5.03 uIU/mL (0.27-4.20)
[2024-02-24 10:34] LABS: T3 Total 137 ng/dL (76-181)
== END 2024-02-23 09:09 | disposition home or self-care (01) ==
LOC: LAB 09:09
PROVIDERS: PCP Nurse Practitioner Family; Visit Provider Internal Medicine
DX: E03.9 Hypothyroidism, unspecified (principal); E03.8 Other specified hypothyroidism; E06.3 Autoimmune thyroiditis
CPT/HCPCS: 84439; 84443; 84480

== ENCOUNTER 2024-05-09 10:45 | Outpatient (CLI) | payer MEDICAID, SELFPAY ==
[2024-05-09 11:28] LABS: Free T4 Free Thyroxine 1.06 ng/dL (0.82-1.77); Thyroid Stimulating Hormone 2.74 uIU/mL (0.27-4.20)
== END 2024-05-09 10:46 | disposition home or self-care (01) ==
PROVIDERS: PCP Nurse Practitioner Family; Visit Provider Internal Medicine
DX: E03.9 Hypothyroidism, unspecified (principal); E03.8 Other specified hypothyroidism; E06.3 Autoimmune thyroiditis
CPT/HCPCS: 36415; 84439; 84443

== ENCOUNTER 2024-07-12 09:21 | Outpatient (CLI) | payer MEDICAID, SELFPAY ==
[2024-07-12 09:38] LABS: Basophils % 0.5 %; Eosinophils # 0.1 10^3/uL (0.0-0.8); Eosinophils % 1.4 %; Hematocrit 42.4 % (36-47); Lymphocytes # 2.2 10^3/uL (0.8-4.8); Mean Corpuscular HGB Conc 31.4 g/dL (30-55); Mean Corpuscular Hemoglobin 27.4 pg (27-33); Mean Corpuscular Volume 87.4 fl (85-98); Mean Platelet Volume 10.7 fL (7.4-10.4); Monocytes # 0.3 10^3/uL (0.2-0.9); Monocytes % 4.6 %; Neutrophils # 4.63 10^3/uL (1.8-7.7); Neutrophils % 63.1 %; Nucleated Red Blood Cells % 0 %; Platelet Count 328 10^3/cmm (157-399); Red Blood Count 4.85 10^6/uL (3.85-5.65); Red Cell Distribution Width 14.3 % (12.1-15.1); White Blood Count 7.34 10^3/uL (3.29-11.43)
[2024-07-12 09:56] LABS: Alanine Aminotransferase 19 U/L (0-33); Albumin Level 3.8 g/dL (3.5-5.2); Alkaline Phosphatase 51 U/L (35-105); Anion Gap 12.6 (5-19); Aspartate Amino Transferase 15 U/L (0-32); Blood Urea Nitrogen 13 mg/dL (6-20); Calcium 8.9 mg/dL (8.5-10.5); Carbon Dioxide 29 mmol/L (22-29); Chloride 99 mmol/L (98-107); Chol HDL Ratio 3.87 mg/dL (0.0-4.40); Cholesterol 205 mg/dL (0-200); Globulin 3.6 g/dL (1.3-4.6); Glomerular Filtration Rate 117.4 mL/min (90-130); Glucose 85 mg/dL (65-115); HDL Cholesterol 53 mg/dL (60-100); LDL Cholesterol Calculated 125 mg/dL (50-129); LDL HDL Ratio 2.36 RATIO (0.00-3.22); Osmolality Calculated 283 mOsm/kg (285-295); Potassium 3.6 mmol/L (3.5-5.1); Sodium 137 mmol/L (136-145); Total Bilirubin 0.4 mg/dL (0.15-1.2); Total Protein 7.4 g/dL (6.6-8.7); Triglycerides 133 mg/dL (0-150)
[2024-07-12 09:59] LABS: Estmated Average Glucose 100; Hemoglobin A1C 5.1 % (4.0-6.0)
== END 2024-07-12 09:22 | disposition home or self-care (01) ==
LOC: LAB 09:21
PROVIDERS: PCP Nurse Practitioner Family; Visit Provider Nurse Practitioner Family
DX: E78.2 Mixed hyperlipidemia (principal); R73.9 Hyperglycemia, unspecified; D64.9 Anemia, unspecified
CPT/HCPCS: 36415; 80053; 80061; 83036; 85025

== ENCOUNTER → 2024-10-08 10:53 | Outpatient (BNVA) | payer MEDICAID, SELFPAY | PROVIDERS: PCP Nurse Practitioner Family; Visit Provider Internal Medicine | DX: E03.8 Other specified hypothyroidism; E06.3 Autoimmune thyroiditis | CPT/HCPCS: 36415; 84439; 84443 ==

== ENCOUNTER 2025-01-16 14:26 | Outpatient (CLI) | payer MEDICAID, SELFPAY ==
[2025-01-16 15:28] LABS: Free T4 Free Thyroxine 1.38 ng/dL (0.82-1.77); Thyroid Stimulating Hormone 0.79 uIU/mL (0.27-4.20)
== END 2025-01-16 14:27 | disposition home or self-care (01) ==
PROVIDERS: PCP Nurse Practitioner Family; Visit Provider Internal Medicine
DX: E03.8 Other specified hypothyroidism (principal); E06.3 Autoimmune thyroiditis
CPT/HCPCS: 36415; 84439; 84443

== ENCOUNTER 2025-05-16 13:19 | Outpatient (CLI) | payer MEDICAID, SELFPAY ==
[2025-05-16 14:33] LABS: Free T4 Free Thyroxine 1.57 ng/dL (0.82-1.77); Thyroid Stimulating Hormone 2.09 uIU/mL (0.27-4.20)
== END 2025-05-16 13:20 | disposition home or self-care (01) ==
LOC: LAB 13:22
PROVIDERS: PCP Nurse Practitioner Family; Visit Provider Internal Medicine
DX: E03.8 Other specified hypothyroidism (principal); E06.3 Autoimmune thyroiditis
CPT/HCPCS: 36415; 84439; 84443

== ENCOUNTER 2025-06-19 09:03 | Outpatient (CLI) | payer MEDICAID, SELFPAY ==
--- NOTE | 2025-06-19 09:10 | US_ITS ---
WS: [id number] RIGHT UPPER QUADRANT ULTRASOUND HISTORY: ABDOMINAL PAIN COMPARISON: Gallbladder ultrasound 08/08/2022 Liver: 14.9 cm in length. Normal size liver and echogenicity. No bile duct dilatation or mass. Portal Vein: Normal hepatopetal flow with monophasic waveform. Gallbladder: Well-distended gallbladder. Numerous foci within the gallbladder. Some of these shadow. There may be a few small calcified polyps also present. CBD: 0.6 cm Pancreas: Poorly visualized. Right kidney: 10.5 cm in length. Normal size and echogenicity. No hydronephrosis or mass. Aorta and IVC: Unremarkable abdominal aorta and IVC. No ascites. US/US abdomen limited 72021 IMPRESSION: 1. Abnormal gallbladder. Areas of shadowing and nonshadowing from the central gallbladder. Suspect stones and possibly polyps present within the gallbladder. The stone burden in possible polyps have progressed since the prior study from 2021. Consider surgical evaluation. No evidence for acute cholecystitis at thi s time. 2. Normal common bile duct size.
== END 2025-06-19 09:04 | disposition home or self-care (01) ==
LOC: RAD 09:03
PROVIDERS: PCP Nurse Practitioner Family; Visit Provider Nurse Practitioner Family
DX: R10.9 Unspecified abdominal pain (principal)
CPT/HCPCS: 76705

== ENCOUNTER → 2025-08-04 10:09 | Outpatient (BNVA) | payer MEDICAID, SELFPAY | PROVIDERS: PCP Nurse Practitioner Family; Visit Provider Nurse Practitioner Women's Health | DX: Z12.4 Encounter for screening for malignant neoplasm of cervix (principal) | CPT/HCPCS: 87624 ==